=== PATIENT | female | born 1980 | race Hispanic/Latino ===

== ENCOUNTER 2020-09-21 01:01 | Emergency (ER) | payer SELFPAY ==
[~2020-09-21] VITALS: Ht 157.5 cm; Wt 83.9 kg
--- NOTE | 2020-09-21 01:04 | Emergency Department Note ---
History of Present Illnes History of Present Illness Chief Complaint: Chest Pain History of Present Illness This is a 40 year old female presents to the ED with abrupt onset of C P when she woke up this AM. Historian: Patient Arrival Mode: [place] Location: Substernal CP Radiation: Reports non-radiation Severity: moderate Onset quality: sudden Duration (how long): hour(s) Timing of current episode: constant Progression: unchanged Chronicity: new Context: Denies recent illness, Denies recent surgery, Denies recent immobilization, Denies recent travel, Denies trauma/injury, Denies new medications, Denies hx of DVT/PE, Denies non-compliance w/ medications, Denies other Relieving factors: none Exacerbating factors: none Associated symptoms: Reports shortness of breath Treatments prior to arrival: none Past Medical/Family History Physician Review I have reviewed the patient's past medical and family history. Any updates have been documented here. Past Medical History Recent Fever: No Clinical Suspicion of Infectio: No New/Unexplained Change in Ment: No Other Medical History: Anxiety Social History Smoking Cessation: Never Smoker Alcohol Use: None Any Illegal Drug Use: No Review of Systems Review of Systems Constitutional: Reports no symptoms EENTM: Reports no symptoms Cardiovascular: Reports chest pain Respiratory: Reports no symptoms Gastrointestinal: Reports no symptoms Genitourinary: Reports no symptoms Musculoskeletal: Reports no symptoms Integumentary: Reports no symptoms Neurological: Reports no symptoms Psychological: Reports no symptoms Endocrine: Reports no symptoms Hematological/Lymphatic: Reports no symptoms Physical Exam Related Data Allergies: Coded Allergies: acetaminophen (Verified Adverse Reaction, Intermediate, chest pain, 09/21/20) hydrocodone (Verified Adverse Reaction, Intermediate, chest pain, ) tramadol (Verified Adverse Reaction, Intermediate, chest pain, 09/21/20) Triage Vital Signs Vital Signs Date Time Temp Pulse Resp B/P (MAP) Pulse Ox O2 Delivery O2 Flow Rate FiO2 09/21/20 01:24 98.7 79 20 114/81 100 09/21/20 02:19 Room Air Vital signs reviewed: Yes Physical Exam CONSTITUTIONAL Constitutional: Present well-developed, Present well-nourished HENT HENT: Present normocephalic, Present atraumatic, Present oropharynx clear/moist , Present nose normal HENT L/R: Present left ext ear normal, Present right ext ear normal EYES Eyes: Reports PERRL, Reports conjunctivae normal NECK Neck: Present ROM normal PULMONARY Pulmonary: Present effort normal, Present breath sounds normal CARDIOVASCULAR Cardiovascular: Present regular rhythm, Present heart sounds normal, Present capillary refill normal, Present normal rate GASTROINTESTINAL Abdominal: Present soft, Present nontender, Present bowel sounds normal GENITOURINARY Genitourinary: Present exam deferred SKIN Skin: Present warm, Present dry MUSCULOSKELETAL Musculoskeletal: Present ROM normal NEUROLOGICAL Neurological: Present alert, Present oriented x 3, Present no gross motor or sensory deficits PSYCHOLOGICAL Psychological: Present mood/affect normal, Present judgement normal Results Laboratory Lab results reviewed: Yes Laboratory comments Laboratory Tests Test 09/21/20 01:25 White Blood Count 10.62 x10e3/uL (4.8-10.8) Red Blood Count 3.88 x10e6/uL (3.6-5.1) Hemoglobin 11.3 g/dL (12.0-16.0) Hematocrit 34.6 % (34.2-44.1) Mean Corpuscular Volume 89.2 fL (81-99) Mean Corpuscular Hemoglobin 29.1 pg (28-32) Mean Corpuscular Hemoglobin Concent 32.7 g/dL (31-35) Red Cell Distribution Width 13.2 % (11.7-14.4) Platelet Count 245 x10e3/uL (140-360) Neutrophils (%) (Auto) 58.1 % (38.7-80.0) Lymphocytes (%) (Auto) 33.2 % (18.0-39.1) Monocytes (%) (Auto) 6.5 % (4.4-11.3) Eosinophils (%) (Auto) 1.3 % (0.0-6.0) Basophils (%) (Auto) 0.5 % (0.0-1.0) Neutrophils # (Auto) 6.2 (2.1-6.9) Lymphocytes # (Auto) 3.5 (1.0-3.2) Monocytes # (Auto) 0.7 (0.2-0.8) Eosinophils # (Auto) 0.1 (0.0-0.4) Basophils # (Auto) 0.1 (0.0-0.1) Absolute Immature Granulocyte (auto 0.04 x10e3/uL (0-0.1) D-Dimer Quantitative (PE/DVT) 0.22 ug/mLFEU (0.00-0.45) Sodium Level 138 mmol/L (136-145) Potassium Level 3.6 mmol/L (3.5-5.1) Chloride Level 106 mmol/L (98-107) Carbon Dioxide Level 24 mmol/L (22-29) Anion Gap 11.6 mmol/L (8-16) Blood Urea Nitrogen 13 mg/dL (7-26) Creatinine 0.82 mg/dL (0.57-1.11) Estimat Glomerular Filtration Rate > 60 ML/MIN (60-) BUN/Creatinine Ratio 16 (6-25) Glucose Level 94 mg/dL (74-118) Calcium Level 8.9 mg/dL (8.4-10.2) Total Bilirubin 0.2 mg/dL (0.2-1.2) Aspartate Amino Transf (AST/SGOT) 11 IU/L (5-34) Alanine Aminotransferase (ALT/SGPT) 14 IU/L (0-55) Alkaline Phosphatase 52 IU/L (40-150) Creatine Kinase 75 IU/L (29-168) Creatine Kinase MB 1.30 ng/mL (0-5.0) Troponin I 0.002 ng/mL (0-0.300) B-Type Natriuretic Peptide 16.2 pg/mL (0-100) Total Protein 7.1 g/dL (6.5-8.1) Albumin 3.8 g/dL (3.5-5.0) Globulin 3.3 g/dL (2.3-3.5) Albumin/Globulin Ratio 1.2 (0.8-2.0) Imaging Imaging results reviewed: Yes Impressions [place] [id number] Patient Name: NEEMA CUEVAS MR #: [id number] : 1980 Age/Sex: 40/F Req #: [id number] Adm Physician: Ordered by: JEFF JOHN DO Report #: [id number] Location: ER Room/Bed: Procedure: [id number] DX/CHEST SINGLE (PORTABLE) Exam Date: Exam Time: REPORT STATUS: Signed EXAMINATION: CHEST SINGLE (PORTABLE) INDICATION: CP ^ERMD ORDER ^Y COMPARISON: None FINDINGS: TUBES and LINES: None. LUNGS: Normal lung volumes. Lungs are clear. No consolidations. PLEURA: No pleural effusion or pneumothorax. HEART AND MEDIASTINUM: The cardiomediastinal silhouette is unremarkable. BONES AND SOFT TISSUES: No acute osseous lesion. Soft tissues are unremarkable. UPPER ABDOMEN: No free air under the diaphragm. IMPRESSION: No acute thoracic radiographic abnormality. Signed by: Bonilla Celaya DO on 09/21/2020 2:14 AM Dictated By: BONILLA CELAYA DO 3 Transcribed By: GENI on 09/21/20213 COPY TO: JEFF JOHN DO~ Procedures 12 Lead ECG Interpretation ECG Interpretation #1: ECG: ECG 1 Roll Panner: Interpreted by ED physician Date: Sep 21, 2020 Time: 01:29 Prior ECG tracings: reviewed Rhythm: sinus rhythm Rate: normal BPM: 76 QRS axis: normal ST segments normal: Yes T waves normal: Yes Other findings: no other findings Clinical Impression: normal ECG ECG Interpretation #2: ECG: ECG 2 Roll Panner: Interpreted by ED physician Date: Sep 21, 2020 Time: 02:43 Rhythm: sinus rhythm Rate: normal BPM: 77 QRS axis: normal ST segments normal: Yes T waves normal: Yes Clinical Impression: normal ECG Assessment & Plan Medical Decision Making MDM Diff Dx : acs, asthma, PE, PTX Assessment & Plan Final Impression: (1) Chest pain Depart Disposition: HOME, SELF-CARE JEFF JOHN DO Sep 21, 2020 01:04
[2020-09-21] MEDS ORDERED: ASPIRIN 81 MG CHEW TAB PO ONE (01:15)
[2020-09-21 01:31] LABS: BASOPHILS # (AUTO) 0.1 (0.0-0.1); BASOPHILS % 0.5 % (0.0-1.0); EOSINOPHILS # (AUTO) 0.1 (0.0-0.4); EOSINOPHILS % 1.3 % (0.0-6.0); HEMATOCRIT 34.6 % (34.2-44.1); HEMOGLOBIN 11.3 g/dL (12.0-16.0); LYMPHOCYTES # (AUTO) 3.5 (1.0-3.2); LYMPHOCYTES % 33.2 % (18.0-39.1); MEAN CORPUSCULAR HEMOGLOBIN 29.1 pg (28-32); MEAN CORPUSCULAR HGB CONC 32.7 g/dL (31-35); MEAN CORPUSCULAR VOLUME 89.2 fL (81-99); MONOCYTES # (AUTO) 0.7 (0.2-0.8); MONOCYTES % 6.5 % (4.4-11.3); NEUTROPHILS # (AUTO) 6.2 (2.1-6.9); NEUTROPHILS % 58.1 % (38.7-80.0); PLATELET COUNT 245 x10e3/uL (140-360); RED BLOOD COUNT 3.88 x10e6/uL (3.6-5.1); RED CELL DISTRIBUTION WIDTH 13.2 % (11.7-14.4)
[2020-09-21 01:51] LABS: ALANINE AMINOTRANSFERASE 14 IU/L (0-55); ALBUMIN 3.8 g/dL (3.5-5.0); ALBUMIN/GLOBULIN RATIO 1.2 (0.8-2.0); ALKALINE PHOSPHATASE 52 IU/L (40-150); ANION GAP 11.6 mmol/L (8-16); BLOOD UREA NITROGEN 13 mg/dL (7-26); BUN/CREATININE RATIO 16 (6-25); CALCIUM 8.9 mg/dL (8.4-10.2); CARBON DIOXIDE 24 mmol/L (22-29); CHLORIDE 106 mmol/L (98-107); CREATINE KINASE 75 IU/L (29-168); CREATININE, SERUM 0.82 mg/dL (0.57-1.11); EST GLOMERULAR FILTRATION RATE > 60 ML/MIN (60-); GLUCOSE 94 mg/dL (74-118); POTASSIUM 3.6 mmol/L (3.5-5.1); SODIUM 138 mmol/L (136-145)
--- NOTE | 2020-09-21 02:17 | Diagnostic Imaging Report ---
EXAMINATION: CHEST SINGLE (PORTABLE) INDICATION: CP ^ERMD ORDER ^Y COMPARISON: None FINDINGS: TUBES and LINES: None. LUNGS: Normal lung volumes. Lungs are clear. No consolidations. PLEURA: No pleural effusion or pneumothorax. HEART AND MEDIASTINUM: The cardiomediastinal silhouette is unremarkable. BONES AND SOFT TISSUES: No acute osseous lesion. Soft tissues are unremarkable. UPPER ABDOMEN: No free air under the diaphragm. IMPRESSION: No acute thoracic radiographic abnormality. Signed by: Bonilla Celaya DO on 09/21/2020 2:14 AM
--- OUTSIDE RECORDS SUMMARY | 2020-09-21 02:36 | XMS REPORT | Continuity of Care Document ---
Author Author [facility] t Organization [facility] Address [address] [place] [address] Phone Unavailable Care Team Providers Care Human Resources Trainer Name Role Phone Pcp, No PCP Unavailable JEFF JOHN Unavailable Tim Pimentel MD TIM PIMENTEL Unavailable Payers Payer Name Policy Type Policy Number Effective Date Expiration Date S ource Problems This patient has no known problems. Allergies, Adverse Reactions, Alerts Allergy Name Allergy Type Status Severity Reaction(s) Onset Date Inacti ve Date Treating Clinician Comments Source tramadol DA Active 2020-07-05 00:00:00 [facility] hydrocodone bit DA Active [place] 2019-11-22 00:00:00 [facility] hydrocodone DA Active 2019-11-22 00:00:00 [facility] acetaminophen DA Active 2019-11-22 00:00:00 [facility] hydrocodone DA Active 2018-12-19 00:00:00 [facility] acetaminophen DA Active 2018-12-19 00:00:00 [facility] hydrocodone DA Active 2016-09-05 00:00:00 [facility] acetaminophen DA Active 2016-09-05 00:00:00 [facility] hydrocodone DA Active SV 2016-03-18 00:00:00 [facility] acetaminophen DA Active SV 2016-03-18 00:00:00 [facility] hydrocodone bit DA Active MO 2013-08-12 00:00:00 [facility] acetaminophen DA Active MO 2013-08-12 00:00:00 [facility] Social History Social Habit Start Date Stop Date Quantity Comments Source History SDOH Alcohol Std Drinks [facility] History SDOH Alcohol Binge [facility] Sex Assigned At [facility] Tobacco use and exposure 2019-11-14 00:00:00 2019-11-14 00:00:00 Neve r used [facility] Alcohol intake 2019-11-14 00:00:00 2019-11-14 00:00:00 Current non-drinker of alcohol (finding) [facility] History SDOH Alcohol Frequency 2019-11-14 00:00:00 2019-11-14 00:00:0 0 1 [facility] Smoking Status Start Date Stop Date Source Never smoker [facility] Medications Ordered Medication Name Filled Medication Name Start Date Stop Da te Current Medication? Ordering Clinician Indication Dosage Frequency Signature (SIG) Comments Components Source ALPRAZolam (XANAX) 0.25 MG tablet 2019-11-14 06:56:31 Yes .25mg Take 0.25 mg by mouth every night as needed for Anxiety. [facility] albuterol (PROVENTIL) 2.5 mg /3 mL (0.083 %) nebulizer solut ion 2019-11-14 06:56:31 Yes 2.5mg Take 2.5 m g by nebulization every 6 (six) hours as needed for Wheezing. [facility] Vital Signs Vital Name Observation Time Observation Value Comments Source Systolic blood pressure 2019-11-14 02:59:00 107 mm[Hg] [facility] Diastolic blood pressure 2019-11-14 02:59:00 75 mm[Hg] [facility] Heart rate 2019-11-14 02:59:00 79 /min [facility] Body temperature 2019-11-14 02:59:00 37.06 Lauren [facility] Respiratory rate 2019-11-14 02:59:00 20 /min [facility] Body height 2019-11-14 02:59:00 157.5 cm [facility] Body weight 2019-11-14 02:59:00 81.647 kg [facility] BMI 2019-11-14 02:59:00 32.92 kg/m2 [facility] Oxygen saturation in Arterial blood by Pulse oximetry 11-14 02:59:00 100 /min [facility] Procedures Procedure Date / Time Performed Performing Clinician [facility] e REPORT OF PROCEDURE - ENDOSCOPY SCAN 2019-11-24 13:10:27 Pro vider, Default Scanning [facility] SCREEN, URINE 2019-11-14 02:36:00 Jasmeet Pimentel Tim [facility] BASIC METABOLIC PANEL (7) 2019-11-14 02:31:00 Jasmeet Pimentel [facility] B-TYPE NATRIURETIC FACTOR (BNP) 2019-11-14 02:31:00 Jasmeet Pimentel [facility] TROPONIN I 2019-11-14 02:31:00 Jasmeet Pimentel Tim [facility] CBC W/PLT COUNT & AUTO DIFFERENTIAL 2019-11-14 02:31:00 Jasmeet Pimentel Tim [facility] ECG 12-LEAD 2019-11-14 02:10:25 [facility] Plan of Care Planned Activity Planned Date Details Comments Source Future Scheduled Test 2020-07-09 00:00:00 INFLUENZA VACCINE (#1) [code = INFLUENZA VACCINE (#1)] [facility] Future Scheduled Test 2002 00:00:00 Screening for adelso gnant neoplasm of cervix (procedure) [code = 137877632] [facility] Future Scheduled Test 2001 00:00:00 Lipid panel (proce dure) [code = 34074203] [facility] Test Description Test Time Test Comments Results Result Comments Source CHEST SINGLE (PORTABLE) 2020-09-21 02:13:00 [facility] 1980 Sex: F [place] [id number] Patient Name: NEEMA CEUVAS MR #: [id number] : 1980 Age/Sex: 40/F Req #: [id number] Adm Physician: Ordered by: JEFF JOHN DO Report #: [id number] Location: Room/Bed: Procedure: [id number] DX/CHEST SINGLE (PORTABLE) Exam Date: Exam Time: REPORT STATUS: Signed EXAMINATION: CHEST SINGLE (PORTABLE) INDICATION: CP ERMD ORDER Y COMPARISON: None FINDINGS: TUBES and LINES: None. LUNGS: Normal lung volumes. Lungs are clear. No consolidations. PLEURA: No pleural effusion or pneumothorax. HEART AND MEDIASTINUM: The cardiomediastinal silhouette is unremarkable. BONES AND SOFT TISSUES: No acute osseous lesion. Soft tissues are unremarkable. UPPER ABDOMEN: No free air under the diaphragm. IMPRESSION: No acute thoracic radiographic abnormality. Signed by: Bonilla Merritt DO on 09/21/2020 2:14 AM Dictated By: BONILLA MERRITT DO 3 Transcribed By: GENI on 09/21/20213 COPY TO: JEFF JOHN DO - MRI BRAIN W/O CONTRAST 2020-07-05 12:55:00 FA X: Karlee Freeman MD [phone] [place]: St: [facility] FAX: Ari Moore DO Name: MASONNEEMA NICHOLS [facility] : 1980 Age/S: 40/F [address] [facility] Unit #: [id number] Loc: [address] [place] [address] Phys: Ari Moore DO Acct: [id number] Dis Date: Status: ADM IN PHONE #: [phone] Exam Date: 07/05/2020 1253 FAX #: [phone] Reason: left face/arm numbness EXAMS: CPT CODE: [id number] MRI BRAIN W/O CONTRAST 13846 REASON FOR EXAM: left face/arm numbness Exam Order Date: 07/05/2020 1:16 PM Ordering: Ari Moore DO Attending:Micha Marrero MD Location:[facility] Procedure: - MRI BRAIN W/O CONTRAST Comparison: Head CT 07/04/2020 FINDINGS: Axial, sagittal, and coronal images of the head were obtained using T1, T2 weighted, inversion recovery, and gradient echo sequences. The diffusion images are within normal limits without abnormal signal intensity to suggest acute infarct. No IV gadolinium was given. The sagittal images show normal pituitary, cerebellum, and brain stem. No evidence of suprasellar mass. The axial T2, inversion recovery, and gradient echo images show no evidence of intra or extra axial mass. The ventricles, cisterns, and sulci are unremarkable. No evidence of hemorrhage. The cerebellar pontine angle area is within normal limits. There is no evidence of mass noted. The axial T1 images show no evidence of mass. No justine dence of old infarct. The coronal images show normal optic chiasm. IMPRESSION: Unremarkable brain MRI. at 7870 Reported and signed by: Anthony Rockwell M.D. CC: Karlee Martínez MD; Ari Moore DO Technologist: FLIP JEANRT - MRI Trnohrd Date/Time/By: 07/05/2020 (4411) : By: [email or web address] Orig Print D/T: S: 07/05/2020 (2357) PAGE 1 Signed Report URINALYSIS COMPLETE 2020-07-05 12:44:00 Test Item UA COLOR (test code = COLU) Light-Yellow YELLOW UA APPEARANCE (test code = APPU) Cloudy CLEAR A UA GLUCOSE DIPSTICK (test code = DGLUU) NEGATIVE mg/dL NEGATIVE UA BILIRUBIN DIPSTICK (test code = BILU) NEGATIVE mg/dL NEGATIVE UA KETONE DIPSTICK (test code = KETU) NEGATIVE mg/dL NEGATIVE UA SPECIFIC GRAVITY (test code = SGU) 1.018 1.001-1.035 UA BLOOD DIPSTICK (test code = LISSA) 0.03 mg/dL (Trace) mg/dL NEGATI VE A UA PH DIPSTICK (test code = JUDE) 7.0 5.0-8.0 UA PROTEIN DIPSTICK (test code = PROU) NEGATIVE mg/dL NEGATIVE UA UROBILINIOGEN DIPSTICK (test code = URO) Normal mg/dL NEGATIVE UA NITRITE DIPSTICK (test code = CLOVIS) NEGATIVE NEGATIVE UA LEUKOCYTE ESTERASE W REFLEX (test code = LEUUR) 500 Vera/u L (3+) Vera/uL NEGATIVE A UA WBC (test code = WBCU) 21-50 per HPF 0-5 A UA RBC (test code = RBCU) 6-10 #/HPF 0-5 A UA EPITHELIAL CELLS (test code = EPIU) MOD per HPF FEW UA BACTERIA (test code = BACU) MANY #/HPF NONE A UA HYALINE CAST (test code = HYALU) 0-2 #/LPF 0-5 UA MUCUS (test code = MUCU) FEW #/LPF FEW UA AMORPHOUS SEDIMENT (test code = AMORU) FEW #/LPF NONE Urine Source? VoidedDRUGS OF ABUSE SCREEN [id number] 12:44:00* Test Item Value Reference Range Interpretation Comments URN COCAINE (test code = COCAURN) NEGATIVE <300 ng/mL URN CANNABINOIDS (test code = CANNABURN) NEGATIVE <50 ng/mL URN AMPHETAMINE (test code = AMPHETURN) NEGATIVE <1000 ng/mL URN BARBITURATE (test code = BARBITURN) NEGATIVE <200 ng/mL URN BENZODIAZEPINE (test code = BENZOURN) POSITIVE <200 ng/mL A This test provides only a preliminary test result. A morespecific alternate chemical method must be used in order toobtain a confirmed analytical result. Gas chromatography/mass spectrometry (GC/MS) is thepreferred confirmatory method. Other chemical confirmationmethods are available. Clinical consideration and professional judgment should be applied to any drug of abusetest result, particularly when preliminary positive resultsare used.Unconfirmed screening results must not be used fornon-medical purposes (e.g., employment testing, legaltesting). URN OPIATES (test code = OPIATURN) NEGATIVE <300 ng/mL URN PHENCYCLIDINE (PCP) (test code = PHENCURN) NEGATIVE <25 ng/ mL URN METHADONE (test code = METHAURN) NEGATIVE <300 ng/mL Urine Source? VoidedURINALYSIS [id number] 12:44:00* Test Item Value Reference Range Interpretation Comments UA COLOR (test code = COLU) Light-Yellow YELLOW UA APPEARANCE (test code = APPU) Cloudy CLEAR A UA GLUCOSE DIPSTICK (test code = DGLUU) NEGATIVE mg/dL NEGATIVE UA BILIRUBIN DIPSTICK (test code = BILU) NEGATIVE mg/dL NEGATIVE UA KETONE DIPSTICK (test code = KETU) NEGATIVE mg/dL NEGATIVE UA SPECIFIC GRAVITY (test code = SGU) 1.018 1.001-1.035 UA BLOOD DIPSTICK (test code = LISSA) 0.03 mg/dL (Trace) mg/dL NEGATI VE A UA PH DIPSTICK (test code = JUDE) 7.0 5.0-8.0 UA PROTEIN DIPSTICK (test code = PROU) NEGATIVE mg/dL NEGATIVE UA UROBILINIOGEN DIPSTICK (test code = URO) Normal mg/dL NEGATIVE UA NITRITE DIPSTICK (test code = CLOVIS) NEGATIVE NEGATIVE UA LEUKOCYTE ESTERASE W REFLEX (test code = LEUUR) 500 Vera/u L (3+) Vera/uL NEGATIVE A UA WBC (test code = WBCU) 21-50 per HPF 0-5 A UA RBC (test code = RBCU) 6-10 #/HPF 0-5 A UA EPITHELIAL CELLS (test code = EPIU) MOD per HPF FEW UA BACTERIA (test code = BACU) MANY #/HPF NONE A UA HYALINE CAST (test code = HYALU) 0-2 #/LPF 0-5 UA MUCUS (test code = MUCU) FEW #/LPF FEW UA AMORPHOUS SEDIMENT (test code = AMORU) FEW #/LPF NONE Urine Source? VoidedDRUGS OF ABUSE SCREEN [id number] 12:44:00* Test Item Value Reference Range Interpretation Comments URN COCAINE (test code = COCAURN) NEGATIVE <300 ng/mL URN CANNABINOIDS (test code = CANNABURN) NEGATIVE <50 ng/mL URN AMPHETAMINE (test code = AMPHETURN) NEGATIVE <1000 ng/mL URN BARBITURATE (test code = BARBITURN) NEGATIVE <200 ng/mL URN BENZODIAZEPINE (test code = BENZOURN) POSITIVE <200 ng/mL A This test provides only a preliminary test result. A morespecific alternate chemical method must be used in order toobtain a confirmed analytical result. Gas chromatography/mass spectrometry (GC/MS) is thepreferred confirmatory method. Other chemical confirmationmethods are available. Clinical consideration and professional judgment should be applied to any drug of abusetest result, particularly when preliminary positive resultsare used.Unconfirmed screening results must not be used fornon-medical purposes (e.g., employment testing, legaltesting). URN OPIATES (test code = OPIATURN) NEGATIVE <300 ng/mL URN PHENCYCLIDINE (PCP) (test code = PHENCURN) NEGATIVE <25 ng/ mL URN METHADONE (test code = METHAURN) NEGATIVE <300 ng/mL Urine Source? VoidedURINALYSIS [id number] 12:31:00* Test Item Value Reference Range Interpretation Comments UA COLOR (test code = COLU) Light-Yellow YELLOW UA APPEARANCE (test code = APPU) Cloudy CLEAR A UA GLUCOSE DIPSTICK (test code = DGLUU) NEGATIVE mg/dL NEGATIVE UA BILIRUBIN DIPSTICK (test code = BILU) NEGATIVE mg/dL NEGATIVE UA KETONE DIPSTICK (test code = KETU) NEGATIVE mg/dL NEGATIVE UA SPECIFIC GRAVITY (test code = SGU) 1.018 1.001-1.035 UA BLOOD DIPSTICK (test code = LISSA) 0.03 mg/dL (Trace) mg/dL NEGATI VE A UA PH DIPSTICK (test code = JUDE) 7.0 5.0-8.0 UA PROTEIN DIPSTICK (test code = PROU) NEGATIVE mg/dL NEGATIVE UA UROBILINIOGEN DIPSTICK (test code = URO) Normal mg/dL NEGATIVE UA NITRITE DIPSTICK (test code = CLOVIS) NEGATIVE NEGATIVE UA LEUKOCYTE ESTERASE W REFLEX (test code = LEUUR) 500 Vera/u L (3+) Vera/uL NEGATIVE A UA WBC (test code = WBCU) per HPF 0-5 UA RBC (test code = RBCU) per HPF 0-5 UA EPITHELIAL CELLS (test code = EPIU) per HPF Few UA BACTERIA (test code = BACU) per HPF NONE Urine Source? VoidedDRUGS OF ABUSE SCREEN [id number] 12:31:00* Test Item Value Reference Range Interpretation Comments URN COCAINE (test code = COCAURN) <300 ng/mL URN CANNABINOIDS (test code = CANNABURN) <50 ng/mL URN AMPHETAMINE (test code = AMPHETURN) <1000 ng/mL URN BARBITURATE (test code = BARBITURN) <200 ng/mL URN BENZODIAZEPINE (test code = BENZOURN) <200 ng/mL URN OPIATES (test code = OPIATURN) <300 ng/mL URN PHENCYCLIDINE (PCP) (test code = PHENCURN) <25 ng/ mL URN METHADONE (test code = METHAURN) <300 ng/mL Urine Source? VoidedBASIC METABOLIC [id number] 07:02:00* Test Item Value Reference Range Interpretation Comments SODIUM (test code = NA) 143 mmol/L 136-145 N POTASSIUM (test code = K) 3.8 mmol/L 3.5-5.1 N CHLORIDE (test code = CL) 112.0 mmol/L 98-107 H CARBON DIOXIDE (test code = CO2) 25.0 mmol/L 21-32 N ANION GAP (test code = GAP) 9.8 10-20 L GLUCOSE (test code = GLU) 78 mg/dL 74-106 N BLOOD UREA NITROGEN (test code = BUN) 10 mg/dL 7-18 N GLOMERULAR FILTRATION RATE (test code = GFR) > 60 mL/min >=60 Estimated GFR by using Modified MDRD formula.Chronic kidney disease is defined as either kidney damageor GFR <60 mL/min/1.73 m2 for >3 months. CREATININE (test code = CREAT) 0.50 mg/dL 0.55-1.02 L Note change in reference range due to change in reagent. BUN/CREATININE RATIO (test code = BUN/CREA) 20.3 10-20 H CALCIUM (test code = CA) 8.5 mg/dL 8.5-10.1 N BASIC METABOLIC [id number] 06:54:00* Test Item Value Reference Range Interpretation Comments SODIUM (test code = NA) 143 mmol/L 136-145 N POTASSIUM (test code = K) 3.8 mmol/L 3.5-5.1 N CHLORIDE (test code = CL) 112.0 mmol/L 98-107 H CARBON DIOXIDE (test code = CO2) mmol/L 21-32 ANION GAP (test code = GAP) 10-20 GLUCOSE (test code = GLU) mg/dL 74-106 BLOOD UREA NITROGEN (test code = BUN) mg/dL 7-18 GLOMERULAR FILTRATION RATE (test code = GFR) mL/min >=60 CREATININE (test code = CREAT) mg/dL 0.55-1.02 BUN/CREATININE RATIO (test code = BUN/CREA) 10-20 CALCIUM (test code = CA) mg/dL 8.5-10.1 CBC W/AUTO [id number] 06:30:00* Test Item Value Reference Range Interpretation Comments WHITE BLOOD CELL (test code = WBC) 7.5 K/mm3 4.5-12.5 N RED BLOOD CELL (test code = RBC) 3.70 mill/mm3 3.7-5.2 N HEMOGLOBIN (test code = HGB) 11.1 gram/dL 11.5-15.5 L HEMATOCRIT (test code = HCT) 33.9 % 36.0-46.0 L MEAN CELL VOLUME (test code = MCV) 91.6 fL 80-98 N MEAN CELL HGB (test code = MCH) 30.0 picogram 27.0-33.0 N MEAN CELL HGB CONCETRATION (test code = MCHC) 32.7 gram/dL 33.0-36. 0 L RED CELL DISTRIBUTION WIDTH (test code = RDW) 13.8 % 11.6-16. 2 N RED CELL DISTRIBUTION WIDTH SD (test code = RDW-SD) 45.9 fL 37 .0-51.0 N PLATELET COUNT (test code = PLT) 220 K/mm3 150-450 N MEAN PLATELET VOLUME (test code = MPV) 10.4 fL 6.7-11.0 N NEUTROPHIL % (test code = NT%) 53.0 % 39.0-69.0 N IMMATURE GRANULOCYTE % (test code = IG%) 0.3 % 0.0-5.0 N LYMPHOCYTE % (test code = LY%) 37.7 % 25.0-55.0 N MONOCYTE % (test code = MO%) 6.5 % 0.0-10.0 N EOSINOPHIL % (test code = EO%) 2.0 % 0.0-5.0 N BASOPHIL % (test code = BA%) 0.5 % 0.0-1.0 N NUCLEATED RBC % (test code = NRBC%) 0.0 % 0-0 N NEUTROPHIL # (test code = NT#) 3.97 K/mm3 1.8-7.7 N IMMATURE GRANULOCYTE # (test code = IG#) 0.02 x10 3/uL 0-0.03 N LYMPHOCYTE # (test code = LY#) 2.82 K/mm3 1.0-5.0 N MONOCYTE # (test code = MO#) 0.49 K/mm3 0-0.8 N EOSINOPHIL # (test code = EO#) 0.15 K/mm3 0.0-0.5 N BASOPHIL # (test code = BA#) 0.04 K/mm3 0.0-0.2 N NUCLEATED RBC # (test code = NRBC#) 0.00 K/mm3 0.0-0.1 N MANUAL DIFF REQUIRED (test code = MDIFF) NO [id number] 16:03:00* Test Item Value Reference Range Interpretation Comments MAGNESIUM (test code = MAG) 2.4 mg/dL 1.8-2.4 N THYROID PROFILE [id number] 16:03:00* Test Item Value Reference Range Interpretation Comments T3 UPTAKE (test code = T3UP) 36.0 % 30.0-40.0 N T4 (THYROXINE) (test code = T4) 9.0 ug/dL 4.5-13.9 N T7 (FREE THYROXINE INDEX) (test code = T7) 3.24 FTI 1.3-5.1 N THYROID STIMULATING HORMONE (test code = TSH) 1.760 uIU/mL 0.36-3.7 4 N TSH REFERENCE RANGES: EUTHYROID: 0.35 - 4.3 mIU/mL HYPO : > 5.5 mIU/mL HYPER : < 0.35 mIU/mL [id number] 15:54:00* Test Item Value Reference Range Interpretation Comments MAGNESIUM (test code = MAG) 2.4 mg/dL 1.8-2.4 N THYROID PROFILE [id number] 15:54:00* Test Item Value Reference Range Interpretation Comments T3 UPTAKE (test code = T3UP) % 30.0-40.0 T4 (THYROXINE) (test code = T4) ug/dL 4.5-13.9 T7 (FREE THYROXINE INDEX) (test code = T7) FTI 1.3-5.1 THYROID STIMULATING HORMONE (test code = TSH) uIU/mL 0.36-3.7 4 LIPID PROFILE (CORONARY RISK)2020-07-04 15:34:00* Test Item Value Reference Range Interpretation Comments TRIGLYCERIDES (test code = TRIG) 136 mg/dL 20-150 N CHOLESTEROL (test code = CHOL) 145 mg/dL 0-200 N CHOLESTEROL/HDL RATIO (test code = CHOLHDL) 2.0 RATIO 0-4.9 N RISK ASSOCIATED WITH CHOL/HDL RATIOS: Risk Male Female1/2 AVERAGE 3.43 3.27AVERAGE 4.97 4.442X AVERAGE 9.55 7.053X AVERAGE 23.39 11.04 REFERENCE VALUE IS RELATED TO RISK LEVELS ASRECOMMENDED BY THE [facility]. HEART, LUNG, AND BLOOD INST. HDL CHOLESTEROL (test code = HDL) 51 mg/dL 40-60 N LIPOPROTEIN LDL (test code = LDL) 107 mg/dL 100-129 N RN PERSONNEL, CONTACT PHYSICIAN IMMEDIATELY IF THIS IS A STROKE, AMI OR CAROTID STENOSIS PATIENT WHEN THE LDL >100 (1ST OCCURENCE, THIS ADMISSION) Reference Interval: mg/dL mmol/L Optimal <100 <2.6Near/above optimal 100-129 2.6- 3.3Borderline High 130-159 3.4-4.1High 160-189 4.1-4.9Very High >=190 >=4.9========= This LDL result is a direct measurement.========= [id number] 15:33:00* Test Item Value Reference Range Interpretation Comments ALCOHOL (test code = ALC) < 3 mg/dL 0.0-3.0 N -- INTERPRETIVE DATA NOTE: POSITIVE SCREENING RESULTS SHOULD BE CONSIDERED PRESUMPTIVE.WHEN COLLECTED FOR MEDICAL PURPOSES ONLY. SPECIMEN WILL NOTBE COLLECTED BY CHAIN OF CUSTODY.IF A CONFIRMATION OF POSITIVE RESULTS IS DESIRED, ACONFIRMATION TEST MUST BE REQUESTED BY THE PHYSICIAN AT ANADDITIONAL CHARGE TO THE PATIENT. COVID 19 INHOUSE [id number] 12:40:00* Test Item Value Reference Range Interpretation Comments COVID 19 INHOUSE AG (test code = [id number]) NEGATIVE - XR CHEST 1 [id number] 12:36:00 FAX: Karlee Freeman MD [phone] [place]: St: REG FAX: Ari Moore DO Name: NEEMA FOX [facility] : 1980 Age/S: 40/F [address] [facility] Unit #: [id number] Loc: [place] [address] Phys: Ari Moore DO Acct: [id number] Dis Date: Status: REG ER PHONE #: [phone] Exam Date: 07/04/2020 1145 FAX #: [phone] Reason: COUGH EXAMS: CPT CODE: [id number] XR CHEST 1 V [id number] REASON FOR EXAM: COUGH Exam Order Date: 07/04/2020 10:56 AM Ordering M.D.: Ari Moore DO PROCEDURE: - XR CHEST 1 V COMPARISON: Chest x-ray November 22, 2019 FINDINGS: The lungs are clear. There is no pleural effusion or pneumothorax. Pulmonary vascularity is within normal limits. Cardiomediastinal silhouette is normal in size for technique. The mediastinal contours are within normal limits. Musculoskeletal structures are within normal limits. The visualized upper abdomen is within normal limits. IMPRESSION: No acute cardiopulmonary process. Location: [facility] at 1236 Reported and signed by: Ruddy Broussard MD CC: Karlee Martínez MD; Ari Moore DO Technologist: RT NEFTALI(R) Trnscrd Date/Time/By: 07/04/2020 (1236) : By: [email or web address] Orig Print D/T: S: 07/04/2020 (8562) PAGE 1 Signed Report BASIC METABOLIC [id number] 12:07:00* Test Item Value Reference Range Interpretation Comments SODIUM (test code = NA) 143 mmol/L 136-145 N POTASSIUM (test code = K) 3.4 mmol/L 3.5-5.1 L CHLORIDE (test code = CL) 114.0 mmol/L 98-107 H CARBON DIOXIDE (test code = CO2) 25.0 mmol/L 21-32 N ANION GAP (test code = GAP) 7.4 10-20 L GLUCOSE (test code = GLU) 85 mg/dL 74-106 N BLOOD UREA NITROGEN (test code = BUN) 6 mg/dL 7-18 L GLOMERULAR FILTRATION RATE (test code = GFR) > 60 mL/min >=60 Estimated GFR by using Modified MDRD formula.Chronic kidney disease is defined as either kidney damageor GFR <60 mL/min/1.73 m2 for >3 months. CREATININE (test code = CREAT) 0.50 mg/dL 0.55-1.02 L Note change in reference range due to change in reagent. BUN/CREATININE RATIO (test code = BUN/CREA) 11.0 10-20 N CALCIUM (test code = CA) 8.5 mg/dL 8.5-10.1 N HCG SERUM [id number] 12:07:00* Test Item Value Reference Range Interpretation Comments HCG SERUM QUAL (test code = HCGQL) NEGATIVE NEGATIVE This HCGQL test is NOT applicable for MALE patients.Check with nurse about probable order error.If Tumor Marker Test needed, nurse should order test "HCGTU"(Test #[id number]) [id number] 12:07:00* Test Item Value Reference Range Interpretation Comments TROPONIN-I (test code = TROPI) <0.015 ng/mL 0-0.045 N BASIC METABOLIC [id number] 11:53:00* Test Item Value Reference Range Interpretation Comments SODIUM (test code = NA) 143 mmol/L 136-145 N POTASSIUM (test code = K) 3.4 mmol/L 3.5-5.1 L CHLORIDE (test code = CL) 114.0 mmol/L 98-107 H CARBON DIOXIDE (test code = CO2) mmol/L 21-32 ANION GAP (test code = GAP) 10-20 GLUCOSE (test code = GLU) mg/dL 74-106 BLOOD UREA NITROGEN (test code = BUN) mg/dL 7-18 GLOMERULAR FILTRATION RATE (test code = GFR) mL/min >=60 CREATININE (test code = CREAT) mg/dL 0.55-1.02 BUN/CREATININE RATIO (test code = BUN/CREA) 10-20 CALCIUM (test code = CA) mg/dL 8.5-10.1 HCG SERUM [id number] 11:53:00* Test Item Value Reference Range Interpretation Comments HCG SERUM QUAL (test code = HCGQL) NEGATIVE [id number] 11:53:00* Test Item Value Reference Range Interpretation Comments TROPONIN-I (test code = TROPI) ng/mL 0-0.045 BASIC METABOLIC [id number] 11:53:00* Test Item Value Reference Range Interpretation Comments SODIUM (test code = NA) 143 mmol/L 136-145 N POTASSIUM (test code = K) 3.4 mmol/L 3.5-5.1 L CHLORIDE (test code = CL) 114.0 mmol/L 98-107 H CARBON DIOXIDE (test code = CO2) mmol/L 21-32 ANION GAP (test code = GAP) 10-20 GLUCOSE (test code = GLU) mg/dL 74-106 BLOOD UREA NITROGEN (test code = BUN) mg/dL 7-18 GLOMERULAR FILTRATION RATE (test code = GFR) mL/min >=60 CREATININE (test code = CREAT) mg/dL 0.55-1.02 BUN/CREATININE RATIO (test code = BUN/CREA) 10-20 CALCIUM (test code = CA) mg/dL 8.5-10.1 HCG SERUM [id number] 11:53:00* Test Item Value Reference Range Interpretation Comments HCG SERUM QUAL (test code = HCGQL) NEGATIVE NEGATIVE This HCGQL test is NOT applicable for MALE patients.Check with nurse about probable order error.If Tumor Marker Test needed, nurse should order test "HCGTU"(Test #[id number]) [id number] 11:53:00* Test Item Value Reference Range Interpretation Comments TROPONIN-I (test code = TROPI) ng/mL 0-0.045 PROTHROMBIN [id number] 11:47:00* Test Item Value Reference Range Interpretation Comments PROTHROMBIN TIME PATIENT (test code = PTP) 11.1 seconds 9.0-14.0 N INTERNATIONAL NORMAL RATIO (test code = INR) 1.0 0.8-1.2 N The therapeutic range for oral anticoagulant therapy formost indications is an international normalized ratio (INR)of between 2.0 and 3.0. The recommended therapeutic INRrange for various clinical situations is listed below: Clinical Situation INR range Pulmonary e mbolism treatment (2.0-3.0)Venous thrombosis treatmentVenous thrombosis prophylaxis (high risk surgery)Prevention of systemic embolism from: Acute myocardial infarction Valvular heart disease Atrial fibrillation Mechanical prosthetic heart valves (2.5-3.5) IS PATIENT ON ANTICOAGULANTS? NTHROMBOPLASTIN TIME [id number] 11:47:00* Test Item Value Reference Range Interpretation Comments THROMBOPLASTIN TIME PARTIAL (test code = PTT) 28.2 seconds 23.0-37. 0 N IS PATIENT ON ANTICOAGULANTS? NCBC W/AUTO [id number] 11:40:00* Test Item Value Reference Range Interpretation Comments WHITE BLOOD CELL (test code = WBC) 6.3 K/mm3 4.5-12.5 N RED BLOOD CELL (test code = RBC) 3.73 mill/mm3 3.7-5.2 N HEMOGLOBIN (test code = HGB) 11.0 gram/dL 11.5-15.5 L HEMATOCRIT (test code = HCT) 33.6 % 36.0-46.0 L MEAN CELL VOLUME (test code = MCV) 90.1 fL 80-98 N MEAN CELL HGB (test code = MCH) 29.5 picogram 27.0-33.0 N MEAN CELL HGB CONCETRATION (test code = MCHC) 32.7 gram/dL 33.0-36. 0 L RED CELL DISTRIBUTION WIDTH (test code = RDW) 13.8 % 11.6-16. 2 N RED CELL DISTRIBUTION WIDTH SD (test code = RDW-SD) 45.1 fL 37 .0-51.0 N PLATELET COUNT (test code = PLT) 216 K/mm3 150-450 N MEAN PLATELET VOLUME (test code = MPV) 10.2 fL 6.7-11.0 N NEUTROPHIL % (test code = NT%) 63.2 % 39.0-69.0 N IMMATURE GRANULOCYTE % (test code = IG%) 0.5 % 0.0-5.0 N LYMPHOCYTE % (test code = LY%) 29.1 % 25.0-55.0 N MONOCYTE % (test code = MO%) 5.1 % 0.0-10.0 N EOSINOPHIL % (test code = EO%) 1.6 % 0.0-5.0 N BASOPHIL % (test code = BA%) 0.5 % 0.0-1.0 N NUCLEATED RBC % (test code = NRBC%) 0.0 % 0-0 N NEUTROPHIL # (test code = NT#) 3.96 K/mm3 1.8-7.7 N IMMATURE GRANULOCYTE # (test code = IG#) 0.03 x10 3/uL 0-0.03 N LYMPHOCYTE # (test code = LY#) 1.82 K/mm3 1.0-5.0 N MONOCYTE # (test code = MO#) 0.32 K/mm3 0-0.8 N EOSINOPHIL # (test code = EO#) 0.10 K/mm3 0.0-0.5 N BASOPHIL # (test code = BA#) 0.03 K/mm3 0.0-0.2 N NUCLEATED RBC # (test code = NRBC#) 0.00 K/mm3 0.0-0.1 N CBC W/AUTO [id number] 11:37:00* Test Item Value Reference Range Interpretation Comments WHITE BLOOD CELL (test code = WBC) K/mm3 4.5-12.5 RED BLOOD CELL (test code = RBC) mill/mm3 3.7-5.2 HEMOGLOBIN (test code = HGB) gram/dL 11.5-15.5 HEMATOCRIT (test code = HCT) % 36.0-46.0 MEAN CELL VOLUME (test code = MCV) fL 80-98 MEAN CELL HGB (test code = MCH) picogram 27.0-33.0 MEAN CELL HGB CONCETRATION (test code = MCHC) gram/dL 33.0-36. 0 RED CELL DISTRIBUTION WIDTH (test code = RDW) % 11.6-16. 2 RED CELL DISTRIBUTION WIDTH SD (test code = RDW-SD) fL 37 .0-51.0 PLATELET COUNT (test code = PLT) 216 K/mm3 150-450 N MEAN PLATELET VOLUME (test code = MPV) fL 6.7-11.0 NEUTROPHIL % (test code = NT%) % 39.0-69.0 IMMATURE GRANULOCYTE % (test code = IG%) % 0.0-5.0 LYMPHOCYTE % (test code = LY%) % 25.0-55.0 MONOCYTE % (test code = MO%) % 0.0-10.0 EOSINOPHIL % (test code = EO%) % 0.0-5.0 BASOPHIL % (test code = BA%) % 0.0-1.0 NEUTROPHIL # (test code = NT#) K/mm3 1.8-7.7 LYMPHOCYTE # (test code = LY#) K/mm3 1.0-5.0 MONOCYTE # (test code = MO#) K/mm3 0-0.8 EOSINOPHIL # (test code = EO#) K/mm3 0.0-0.5 BASOPHIL # (test code = BA#) K/mm3 0.0-0.2 - CT HEAD/BRAIN W/O [id number] 11:18:00 Name: NEEMA FOX [facility] : 1980 Age/S: 40 / F [address] Unit #: [id number] Loc: [place] [address] Phys: Ari Moore DO Acct: [id number] Dis Date: Status: PRE ER PHONE #: [phone] Exam Date: 07/04/2020 1114 FAX #: [phone] Reason: left face/arm tingling EXAMS: CPT CODE: [id number] CT HEAD/BRAIN W/O CONT 46911 HISTORY: left face/arm tingling TECHNIQUE: Noncontrast 2.[address] of the head. Examination acquired within 24 hours of arrival. Automated exposure control for dose reduction. COMPARISON: None FINDINGS: No lacerations or contusions of the scalp or facial soft tissues. Calvarium and skull base are intact. No acute hemorrhage. No intracranial mass, mass effect, or midline shift. No effacement of the sulci or red- white matter interface. No cortical atrophy. No signs of white matter small-vessel disease. No hydrocephalus.. No extra-axial fluid collection. Visualized paranasal sinuses are clear. Mastoid air cells and middle ear cavities are clear. There is cerumen in the right external auditory canal. Orbital contents are unremarkable. IMPRESSION: Negative CT head. Location: [facility] at 1118 Reported and signed by: Ruddy Broussard MD CC: Karlee Martínez MD; Ari Moore DO Technologi st:Jn Dewey RT(R),(MR),(CT) CTDI: DLP: Trnscb Date/Time: (1118) t.SDR.RR31 Orig Print D/T: S: 07/04/2020 ( 1121) PAGE 1 Signed Report URINALYSIS [id number] 17:01:00* Test Item Value Reference Range Interpretation Comments UA COLOR (test code = COLU) DARK YELLOW YELLOW A UA APPEARANCE (test code = APPU) Cloudy CLEAR A UA GLUCOSE DIPSTICK (test code = DGLUU) norm mg/dL NEGATIVE UA BILIRUBIN DIPSTICK (test code = BILU) NEGATIVE mg/dL NEGATIVE UA KETONE DIPSTICK (test code = KETU) 5 (Trace) mg/dL NEGATIVE A UA SPECIFIC GRAVITY (test code = SGU) 1.010 1.001-1.035 UA BLOOD DIPSTICK (test code = LISSA) 150 (3+) Joel/uL NEGATIVE A UA PH DIPSTICK (test code = JUDE) 6.5 5.0-8.0 UA PROTEIN DIPSTICK (test code = PROU) 30 (1+) mg/dL Neg-15 A UA UROBILINIOGEN DIPSTICK (test code = URO) 4 mg/dL (2+) mg/dL 0.0 -0.2 A UA NITRITE DIPSTICK (test code = CLOVIS) NEGATIVE NEGATIVE UA LEUKOCYTE ESTERASE DIPSTICK (test code = LEUU) 500 Vera/uL (3+) u L NEGATIVE A UA WBC (test code = WBCU) >50 per HPF 0-5 A UA RBC (test code = RBCU) 5-10 per HPF 0-5 A UA EPITHELIAL CELLS (test code = EPIU) Few (2-5/hpf) per HPF Few UA BACTERIA (test code = BACU) MODERATE per HPF NONE A UA MUCUS (test code = MUCU) MODERATE per LPF NONE-FEW A URINALYSIS W/O [id number] 17:01:00* Test Item Value Reference Range Interpretation Comments UA MICROSCOPIC NEEDED? (test code = UAMICRO) YES URINALYSIS [id number] 16:57:00* Test Item Value Reference Range Interpretation Comments UA COLOR (test code = COLU) DARK YELLOW YELLOW A UA APPEARANCE (test code = APPU) Cloudy CLEAR A UA GLUCOSE DIPSTICK (test code = DGLUU) norm mg/dL NEGATIVE UA BILIRUBIN DIPSTICK (test code = BILU) NEGATIVE mg/dL NEGATIVE UA KETONE DIPSTICK (test code = KETU) 5 (Trace) mg/dL NEGATIVE A UA SPECIFIC GRAVITY (test code = SGU) 1.010 1.001-1.035 UA BLOOD DIPSTICK (test code = LISSA) 150 (3+) Joel/uL NEGATIVE A UA PH DIPSTICK (test code = JUDE) 6.5 5.0-8.0 UA PROTEIN DIPSTICK (test code = PROU) 30 (1+) mg/dL Neg-15 A UA UROBILINIOGEN DIPSTICK (test code = URO) 4 mg/dL (2+) mg/dL 0.0 -0.2 A UA NITRITE DIPSTICK (test code = CLOVIS) NEGATIVE NEGATIVE UA LEUKOCYTE ESTERASE DIPSTICK (test code = LEUU) 500 Vera/uL (3+) u L NEGATIVE A UA WBC (test code = WBCU) per HPF 0-5 UA RBC (test code = RBCU) per HPF 0-5 UA EPITHELIAL CELLS (test code = EPIU) per HPF Few UA BACTERIA (test code = BACU) per HPF NONE URINALYSIS W/O [id number] 16:57:00* Test Item Value Reference Range Interpretation Comments UA MICROSCOPIC NEEDED? (test code = UAMICRO) YES URINALYSIS [id number] 16:57:00* Test Item Value Reference Range Interpretation Comments UA COLOR (test code = COLU) DARK YELLOW YELLOW A UA APPEARANCE (test code = APPU) Cloudy CLEAR A UA GLUCOSE DIPSTICK (test code = DGLUU) norm mg/dL NEGATIVE UA BILIRUBIN DIPSTICK (test code = BILU) NEGATIVE mg/dL NEGATIVE UA KETONE DIPSTICK (test code = KETU) 5 (Trace) mg/dL NEGATIVE A UA SPECIFIC GRAVITY (test code = SGU) 1.010 1.001-1.035 UA BLOOD DIPSTICK (test code = LISSA) 150 (3+) Joel/uL NEGATIVE A UA PH DIPSTICK (test code = JUDE) 6.5 5.0-8.0 UA PROTEIN DIPSTICK (test code = PROU) 30 (1+) mg/dL Neg-15 A UA UROBILINIOGEN DIPSTICK (test code = URO) 4 mg/dL (2+) mg/dL 0.0 -0.2 A UA NITRITE DIPSTICK (test code = CLOVIS) NEGATIVE NEGATIVE UA LEUKOCYTE ESTERASE DIPSTICK (test code = LEUU) 500 Vera/uL (3+) u L NEGATIVE A UA WBC (test code = WBCU) per HPF 0-5 UA RBC (test code = RBCU) per HPF 0-5 UA EPITHELIAL CELLS (test code = EPIU) per HPF Few UA BACTERIA (test code = BACU) per HPF NONE URINALYSIS W/O [id number] 16:57:00* Test Item Value Reference Range Interpretation Comments UA MICROSCOPIC NEEDED? (test code = UAMICRO) YES BASIC METABOLIC [id number] 04:44:00* Test Item Value Reference Range Interpretation Comments SODIUM (test code = NA) 143 mmol/L 136-145 N POTASSIUM (test code = K) 3.1 mmol/L 3.5-5.1 L CHLORIDE (test code = CL) 105 mmol/L 101-109 N CARBON DIOXIDE (test code = CO2) 27.6 mmol/L 21-32 N ANION GAP (test code = GAP) 14 mmol/L 10-20 N GLUCOSE (test code = GLU) 83 mg/dL 74-106 N BLOOD UREA NITROGEN (test code = BUN) 8 mg/dL 3-21 N GLOMERULAR FILTRATION RATE (test code = GFR) > 60 mL/min >=60 Estimated GFR by using Modified MDRD formula.Chronic kidney disease is defined as either kidney damageor GFR <60 mL/min/1.73 m2 for >3 months. CREATININE (test code = CREAT) 0.64 mg/dL 0.55-1.3 N BUN/CREATININE RATIO (test code = BUN/CREA) 12.5 10-20 N CALCIUM (test code = CA) 8.8 mg/dL 8.4-10.2 N HCG SERUM [id number] 04:44:00* Test Item Value Reference Range Interpretation Comments HCG SERUM QUAL (test code = HCGQL) NEGATIVE BASIC METABOLIC [id number] 04:44:00* Test Item Value Reference Range Interpretation Comments SODIUM (test code = NA) 143 mmol/L 136-145 N POTASSIUM (test code = K) 3.1 mmol/L 3.5-5.1 L CHLORIDE (test code = CL) 105 mmol/L 101-109 N CARBON DIOXIDE (test code = CO2) 27.6 mmol/L 21-32 N ANION GAP (test code = GAP) 14 mmol/L 10-20 N GLUCOSE (test code = GLU) 83 mg/dL 74-106 N BLOOD UREA NITROGEN (test code = BUN) 8 mg/dL 3-21 N GLOMERULAR FILTRATION RATE (test code = GFR) > 60 mL/min >=60 Estimated GFR by using Modified MDRD formula.Chronic kidney disease is defined as either kidney damageor GFR <60 mL/min/1.73 m2 for >3 months. CREATININE (test code = CREAT) 0.64 mg/dL 0.55-1.3 N BUN/CREATININE RATIO (test code = BUN/CREA) 12.5 10-20 N CALCIUM (test code = CA) 8.8 mg/dL 8.4-10.2 N HCG SERUM [id number] 04:44:00* Test Item Value Reference Range Interpretation Comments HCG SERUM QUAL (test code = HCGQL) NEGATIVE NEGATIVE This HCGQL test is NOT applicable for MALE patients.Check with nurse about probable order error.If Tumor Marker Test needed, nurse should order test "HCGTU"(Test #[id number]) CBC W/AUTO [id number] 04:34:00* Test Item Value Reference Range Interpretation Comments WHITE BLOOD CELL (test code = WBC) 4.7 K/mm3 4.5-12.5 N RED BLOOD CELL (test code = RBC) 4.34 mill/mm3 3.7-5.2 N HEMOGLOBIN (test code = HGB) 12.7 gram/dL 11.5-15.5 N HEMATOCRIT (test code = HCT) 36.6 % 36.0-46.0 N MEAN CELL VOLUME (test code = MCV) 84.3 fL 80-98 N MEAN CELL HGB (test code = MCH) 29.3 picogram 27.0-33.0 N MEAN CELL HGB CONCETRATION (test code = MCHC) 34.7 gram/dL 33.0-36. 0 N RED CELL DISTRIBUTION WIDTH (test code = RDW) 12.9 % 11.6-16. 2 N RED CELL DISTRIBUTION WIDTH SD (test code = RDW-SD) 40.8 fL 37 .0-51.0 N PLATELET COUNT (test code = PLT) 178 K/mm3 150-450 N MEAN PLATELET VOLUME (test code = MPV) 10.6 fL 6.7-11.0 N NEUTROPHIL % (test code = NT%) 65.4 % 39.0-69.0 N LYMPHOCYTE % (test code = LY%) 26.1 % 25.0-55.0 N MONOCYTE % (test code = MO%) 7.7 % 0.0-10.0 N EOSINOPHIL % (test code = EO%) 0.6 % 0.0-5.0 N BASOPHIL % (test code = BA%) 0.2 % 0.0-1.0 N NEUTROPHIL # (test code = NT#) 3.05 K/mm3 1.8-7.7 N LYMPHOCYTE # (test code = LY#) 1.22 K/mm3 1.0-5.0 N MONOCYTE # (test code = MO#) 0.36 K/mm3 0-0.8 N EOSINOPHIL # (test code = EO#) 0.03 K/mm3 0.0-0.5 N BASOPHIL # (test code = BA#) 0.01 K/mm3 0.0-0.2 N MANUAL DIFF REQUIRED (test code = MDIFF) NO BASIC METABOLIC [id number] 01:13:00* Test Item Value Reference Range Interpretation Comments SODIUM (test code = NA) 140 mmol/L 136-145 N POTASSIUM (test code = K) 3.5 mmol/L 3.5-5.1 N CHLORIDE (test code = CL) 104 mmol/L 101-109 N CARBON DIOXIDE (test code = CO2) 27.5 mmol/L 21-32 N ANION GAP (test code = GAP) 12 mmol/L 10-20 N GLUCOSE (test code = GLU) 91 mg/dL 74-106 N BLOOD UREA NITROGEN (test code = BUN) 11 mg/dL 3-21 N GLOMERULAR FILTRATION RATE (test code = GFR) > 60 mL/min >=60 Estimated GFR by using Modified MDRD formula.Chronic kidney disease is defined as either kidney damageor GFR <60 mL/min/1.73 m2 for >3 months. CREATININE (test code = CREAT) 0.63 mg/dL 0.55-1.3 N BUN/CREATININE RATIO (test code = BUN/CREA) 17.5 10-20 N CALCIUM (test code = CA) 9.2 mg/dL 8.4-10.2 N [id number] 01:13:00* Test Item Value Reference Range Interpretation Comments TROPONIN-I (test code = TROPI) 0.02 ng/mL 0.00-0.056 N BASIC METABOLIC [id number] 01:08:00* Test Item Value Reference Range Interpretation Comments SODIUM (test code = NA) 140 mmol/L 136-145 N POTASSIUM (test code = K) 3.5 mmol/L 3.5-5.1 N CHLORIDE (test code = CL) 104 mmol/L 101-109 N CARBON DIOXIDE (test code = CO2) 27.5 mmol/L 21-32 N ANION GAP (test code = GAP) 12 mmol/L 10-20 N GLUCOSE (test code = GLU) 91 mg/dL 74-106 N BLOOD UREA NITROGEN (test code = BUN) 11 mg/dL 3-21 N GLOMERULAR FILTRATION RATE (test code = GFR) > 60 mL/min >=60 Estimated GFR by using Modified MDRD formula.Chronic kidney disease is defined as either kidney damageor GFR <60 mL/min/1.73 m2 for >3 months. CREATININE (test code = CREAT) 0.63 mg/dL 0.55-1.3 N BUN/CREATININE RATIO (test code = BUN/CREA) 17.5 10-20 N CALCIUM (test code = CA) 9.2 mg/dL 8.4-10.2 N [id number] 01:08:00* Test Item Value Reference Range Interpretation Comments TROPONIN-I (test code = TROPI) ng/mL 0-0.045 CBC W/O [id number] 00:56:00* Test Item Value Reference Range Interpretation Comments WHITE BLOOD CELL (test code = WBC) 9.0 K/mm3 4.5-12.5 N RED BLOOD CELL (test code = RBC) 4.08 mill/mm3 3.7-5.2 N HEMOGLOBIN (test code = HGB) 11.7 gram/dL 11.5-15.5 N HEMATOCRIT (test code = HCT) 35.5 % 36.0-46.0 L MEAN CELL VOLUME (test code = MCV) 87.0 fL 80-98 N MEAN CELL HGB (test code = MCH) 28.7 picogram 27.0-33.0 N MEAN CELL HGB CONCETRATION (test code = MCHC) 33.0 gram/dL 33.0-36. 0 N RED CELL DISTRIBUTION WIDTH (test code = RDW) 12.5 % 11.6-16. 2 N RED CELL DISTRIBUTION WIDTH SD (test code = RDW-SD) 40.6 fL 37 .0-51.0 N PLATELET COUNT (test code = PLT) 221 K/mm3 150-450 N MEAN PLATELET VOLUME (test code = MPV) 10.6 fL 6.7-11.0 N - XR CHEST 1 [id number] 00:43:00 Name: NEEMA FOX [facility] : 1980 Age/S:39 /F [address] [facility] Unit#:[id number] Loc: [place] [address] Phys: Camacho Gusman MD Dis Date: PHONE #: [phone] Status: REG ER FAX #: [phone] Exam Date: 11/22/2019 Reason: CHEST PAIN EXAMS: CPT CODE: [id number] XR CHEST 1 V 58220 EXAM: - XR CHEST 1 V HISTORY: Chest pain. COMPARISON: March 19, 2019. FINDINGS: Single AP view of the chest is provided. Heart size and vascularity are within normal limits. The lungs are clear of focal consolidation. No effusion, pneumothorax, or acute osseous abnormality. There is no significant change compared to previous exam. IMPRESSION: No radiographic evidence of acute cardiopulmonary process. at 0043 Reported and signed by: Wojciech Tamez MD CC: Karlee Martínez MD; Camacho Gusman MD Technologist: RAGHU FONSECA RT(R),RDMS,CT Trnscrpt Data: 11/22/2019 (0043) t.SDR.MKM4 Orig Print D/T: S: 11/22/2019 (0046) PAGE 1 Signed Report ECG 12 [id number] 06:51:00Interface, External Ris In - 11/14/2019 6:51 AM CSTVentricular Rate 97 BPMAtrial Rate 97 BPMP-R Interval 136 msQRS Duration 82 msQ-T Interval 358 msQTC Calculation(Bazepipe) 454 msP [place] 45 degreesR [place] 46 degreesT [place] 23 degreesNormal sinus rhythmNormal ECGNo previous ECGs availableConfirmed by MD TARYN, SADAF ([id number]) on 11/14/2019 6:50:57 [facility] ([facility]NP)2019-11-14 03:26:00* Test Item Value Reference Range Interpretation Comments BNP (test code = 05825-4) <10 0-100 Lab Interpretation (test code = 96577-7) [facility] (BNP)2019-11-14 03:26:00 * Test Item Value Reference Range Interpretation Comments B-TYPE NATRIURETIC PEPTIDE (BEAKER) (test code = 700) < pg/mL 0-100 Troponin [id number] 03:24:00* Test Item Value Reference Range Interpretation Comments Troponin I (test code = 40672-7) <0.01 0-0.03 LALIT (test code = LALIT) Troponin I (TnI) levels must be interpreted in the context of the presenting symptoms and the clinical findings. Elevated TnI levels indicate myocardial damage, but are not specific for ischemic heart disease. Elevated TnI levels are seen in patients with other cardiac conditions (including myocarditis and congestive heart failure), and slight TnI elevations occur in patients with other conditions, including sepsis, renal failure, acidosis, acute neurological disease, and persistent tachyarrhythmia. Lab Interpretation (test code = 12139-5) [facility] [id number] 03:24:00* Test Item Value Reference Range Interpretation Comments TROPONIN I (BEAKER) (test code = 397) < ng/mL 0.00-0.03 Troponin I (TnI) levels must be interpreted in the context of the presenting sym ptoms and the clinical findings. Elevated TnI levels indicate myocardial damage, but are not specific for ischemic heart disease. Elevated TnI levels are seen in patients with other cardiac conditions (including myocarditis and congestive h eart failure), and slight TnI elevations occur in patients with other conditions , including sepsis, renal failure, acidosis, acute neurological disease, and per sistent tachyarrhythmia.Basic Metabolic [id number] 03:17:00* Test Item Value Reference Range Interpretation Comments Sodium (test code = 2951-2) 139 meq/L 136-145 Potassium (test code = 2823-3) 3.5 meq/L 3.5-5.1 Chloride (test code = 2075-0) 107 meq/L 98-107 CO2 (test code = 8-9) 22 meq/L 22-29 BUN (test code = 3094-0) 13 mg/dL 7-21 Creatinine (test code = 2160-0) 0.75 mg/dL 0.57-1.25 Glucose (test code = 2345-7) 91 mg/dL 70-105 Calcium (test code = 59505-7) 9.8 mg/dL 8.4-10.2 EGFR (test code = 42992-0) 86 mL/min/1.73 sq m INSUFFICIENT CLINICAL DATA TO CALCULATE ESTIMATED GFR. [facility] [id number] 03:17:00* Test Item Value Reference Range Interpretation Comments SODIUM (BEAKER) (test code = 381) 139 meq/L 136-145 POTASSIUM (BEAKER) (test code = 379) 3.5 meq/L 3.5-5.1 CHLORIDE (BEAKER) (test code = 382) 107 meq/L 98-107 CO2 (BEAKER) (test code = 355) 22 meq/L 22-29 BLOOD UREA NITROGEN (BEAKER) (test code = 354) 13 mg/dL 7-21 CREATININE (BEAKER) (test code = 358) 0.75 mg/dL 0.57-1.25 GLUCOSE RANDOM (BEAKER) (test code = 652) 91 mg/dL 70-105 CALCIUM (BEAKER) (test code = 697) 9.8 mg/dL 8.4-10.2 EGFR (BEAKER) (test code = 1092) 86 mL/min/1.73 sq m INSUFFICIENT CLINICAL DATA TO CALCULATE ESTIMATED GFR. Screen, [id number] 03:13:00* Test Item Value Reference Range Interpretation Comments Preg Test, Ur (test code = 2112-1) Negative [facility], [id number] 03:13:00* Test Item Value Reference Range Interpretation Comments TEST URINE (BEAKER) (test code = 583) Negative CBC with platelet count + automated [id number] 02:59:00* Test Item Value Reference Range Interpretation Comments WBC (test code = 6690-2) 10.7 3.5- 10.5 K/L H RBC (test code = 789-8) 4.33 3.93- 5.22 M/L MCHC (test code = 786-4) 32.1 32.2- 35.5 GM/DL L Hematocrit (test code = 4544-3) 39.2 % 34.1-44.9 MCV (test code = 787-2) 90.5 fL 79.4-94.8 MCH (test code = 785-6) 29.1 pg 25.6-32.2 RDW (test code = 788-0) 13.3 % 11.7-14.4 Platelets (test code = 777-3) 246 150- 450 K/CU MM MPV (test code = 36667-7) 10.5 fL 9.4-12.3 nRBC (test code = 413) 0 0- 0 /100 WBC % Neutros (test code = 429) 55 % % Lymphs (test code = 430) 37 % % Monos (test code = 431) 6 % % Eos (test code = 432) 2 % % Baso (test code = 437) 0 % # Neutros (test code = 670) 5.85 1.56- 6.13 K/L # Lymphs (test code = 414) 3.98 1.18- 3.74 K/L H # Monos (test code = 415) 0.63 0.24- 0.36 K/L H # Eos (test code = 416) 0.16 0.04- 0.36 K/L # Baso (test code = 417) 0.04 0.01- 0.08 K/L Immature Granulocytes-Relative (test code = 2801) 0 % 0-1 Lab Interpretation (test code = 86219-5) Abnormal [facility] W/PLT COUNT & AUTO [id number] 02:59:00* Test Item Value Reference Range Interpretation Comments WHITE BLOOD CELL COUNT (BEAKER) (test code = 775) 10.7 K/ L 3.5- 10.5 H RED BLOOD CELL COUNT (BEAKER) (test code = 761) 4.33 M/ L 3.93-5 .22 HEMOGLOBIN (BEAKER) (test code = 410) 12.6 GM/DL 11.2-15.7 HEMATOCRIT (BEAKER) (test code = 411) 39.2 % 34.1-44.9 MEAN CORPUSCULAR VOLUME (BEAKER) (test code = 753) 90.5 fL 79. 4-94.8 MEAN CORPUSCULAR HEMOGLOBIN (BEAKER) (test code = 751) 29.1 pg 25.6-32.2 MEAN CORPUSCULAR HEMOGLOBIN CONC (BEAKER) (test code = 752) 32.1 GM/DL 32.2-35.5 L RED CELL DISTRIBUTION WIDTH (BEAKER) (test code = 412) 13.3 % 11.7-14.4 PLATELET COUNT (BEAKER) (test code = 756) 246 K/CU MM 150-450 MEAN PLATELET VOLUME (BEAKER) (test code = 754) 10.5 fL 9.4-12 .3 NUCLEATED RED BLOOD CELLS (BEAKER) (test code = 413) 0 /100 WBC 0 -0 NEUTROPHILS RELATIVE PERCENT (BEAKER) (test code = 429) 55 % LYMPHOCYTES RELATIVE PERCENT (BEAKER) (test code = 430) 37 % MONOCYTES RELATIVE PERCENT (BEAKER) (test code = 431) 6 % EOSINOPHILS RELATIVE PERCENT (BEAKER) (test code = 432) 2 % BASOPHILS RELATIVE PERCENT (BEAKER) (test code = 437) 0 % NEUTROPHILS ABSOLUTE COUNT (BEAKER) (test code = 670) 5.85 K/ L 1.56-6.13 LYMPHOCYTES ABSOLUTE COUNT (BEAKER) (test code = 414) 3.98 K/ L 1.18-3.74 H MONOCYTES ABSOLUTE COUNT (BEAKER) (test code = 415) 0.63 K/ L 0. 24-0.36 H EOSINOPHILS ABSOLUTE COUNT (BEAKER) (test code = 416) 0.16 K/ L 0.04-0.36 BASOPHILS ABSOLUTE COUNT (BEAKER) (test code = 417) 0.04 K/ L 0. 01-0.08 IMMATURE GRANULOCYTES-RELATIVE PERCENT (BEAKER) (test code = 2801) 0 % 0-1 COMPREHENSIVE METABOLIC [id number] 20:47:00* Test Item Value Reference Range Interpretation Comments SODIUM (test code = NA) 141 mmol/L 135-148 N POTASSIUM (test code = K) 3.1 mmol/L 3.5-5.1 L CHLORIDE (test code = CL) 104 mmol/L 101-109 N CARBON DIOXIDE (test code = CO2) 25.5 mmol/L 21-32 N ANION GAP (test code = GAP) 15 mmol/L 10-20 N GLUCOSE (test code = GLU) 106 mg/dL 74-106 N BLOOD UREA NITROGEN (test code = BUN) 11 mg/dL 3-21 N CREATININE (test code = CREAT) 0.86 mg/dL 0.55-1.3 N BUN/CREATININE RATIO (test code = BUN/CREA) 12.8 10-20 N TOTAL PROTEIN (test code = PROT) 8.1 g/dL 6.5-8.4 N ALBUMIN (test code = ALB) 4.0 g/dL 3.4-4.8 N GLOBULIN (test code = GLOB) 4.1 G/DL 1-10 N ALBUMIN/GLOBULIN RATIO (test code = A/G) 1.0 RATIO 0.75-1.50 N CALCIUM (test code = CA) 9.0 mg/dL 8.4-10.2 N BILIRUBIN TOTAL (test code = BILT) 0.60 mg/dL 0.0-1.0 N SGOT/AST (test code = AST) 11 U/L 6-32 N SGPT/ALT (test code = ALT) 15 U/L 12-78 N N ote: Change in REFERENCE RANGE due to new reagent method. ALKALINE PHOSPHATASE TOTAL (test code = ALKP) 63 U/L 38-126 N URINALYSIS [id number] 20:34:00* Test Item Value Reference Range Interpretation Comments UA COLOR (test code = COLU) YELLOW YELLOW UA APPEARANCE (test code = APPU) SLIGHT HAZY CLEAR A UA GLUCOSE DIPSTICK (test code = DGLUU) norm mg/dL NEGATIVE UA BILIRUBIN DIPSTICK (test code = BILU) NEGATIVE mg/dL NEGATIVE UA KETONE DIPSTICK (test code = KETU) 50 (2+) mg/dL NEGATIVE A UA SPECIFIC GRAVITY (test code = SGU) 1.015 1.001-1.035 UA BLOOD DIPSTICK (test code = LISSA) 150 (3+) Joel/uL NEGATIVE A UA PH DIPSTICK (test code = JUDE) 5.0 5.0-8.0 UA PROTEIN DIPSTICK (test code = PROU) 15 (TRACE) mg/dL Neg-15 A UA UROBILINIOGEN DIPSTICK (test code = URO) norm mg/dL 0.0-0.2 UA NITRITE DIPSTICK (test code = CLOVIS) POSITIVE NEGATIVE UA LEUKOCYTE ESTERASE DIPSTICK (test code = LEUU) 25 Vera/uL (Tra ce) uL NEGATIVE A UA WBC (test code = WBCU) 6-10 per HPF 0-5 A UA RBC (test code = RBCU) 3-5 per HPF 0-5 A UA EPITHELIAL CELLS (test code = EPIU) Few (2-5/hpf) per HPF Few UA BACTERIA (test code = BACU) MANY per HPF NONE A Urine Source? Clean CatchUR HCG [id number] 20:34:00* Test Item Value Reference Range Interpretation Comments UR HCG QUAL (test code = HCGQLU) NEGATIVE This HCGQL test is NOT applicable for MALE patients.Check with nurse about probable order error.If Tumor Marker Test needed, nurse should order test "HCGTU"(Test #[id number]) Urine Source? Clean CatchDRUGS OF ABUSE SCREEN [id number] 20:34:00* Test Item Value Reference Range Interpretation Comments URN COCAINE (test code = COCAURN) NEGATIVE NEGATIVE URN CANNABINOIDS (test code = CANNABURN) NEGATIVE NEGATIVE URN AMPHETAMINE (test code = AMPHETURN) NEGATIVE NEGATIVE URN BARBITURATE (test code = BARBITURN) NEGATIVE NEGATIVE URN BENZODIAZEPINE (test code = BENZOURN) POSITIVE NEGATIVE A URN OPIATES (test code = OPIATURN) NEGATIVE NEGATIVE URN PHENCYCLIDINE (PCP) (test code = PHENCURN) NEGATIVE NEGATIV E Urine Source? Clean CatchCOMPREHENSIVE METABOLIC [id number] 20:34:00* Test Item Value Reference Range Interpretation Comments SODIUM (test code = NA) 141 mmol/L 135-148 N POTASSIUM (test code = K) 3.1 mmol/L 3.5-5.1 L CHLORIDE (test code = CL) 104 mmol/L 101-109 N CARBON DIOXIDE (test code = CO2) 25.5 mmol/L 21-32 N ANION GAP (test code = GAP) 15 mmol/L 10-20 N GLUCOSE (test code = GLU) 106 mg/dL 74-106 N BLOOD UREA NITROGEN (test code = BUN) 11 mg/dL 3-21 N CREATININE (test code = CREAT) 0.86 mg/dL 0.55-1.3 N BUN/CREATININE RATIO (test code = BUN/CREA) 12.8 10-20 N TOTAL PROTEIN (test code = PROT) gram/dL 6.4-8.2 ALBUMIN (test code = ALB) g/dL 3.4-5.0 GLOBULIN (test code = GLOB) g/dL 2.7-4.2 ALBUMIN/GLOBULIN RATIO (test code = A/G) 0.75-1.50 CALCIUM (test code = CA) 9.0 mg/dL 8.4-10.2 N BILIRUBIN TOTAL (test code = BILT) mg/dL 0.2-1.2 SGOT/AST (test code = AST) IUnit/L 15-37 SGPT/ALT (test code = ALT) U/L 10-69 ALKALINE PHOSPHATASE TOTAL (test code = ALKP) IUnit/L 45-117 URINALYSIS [id number] 20:32:00* Test Item Value Reference Range Interpretation Comments UA COLOR (test code = COLU) YELLOW YELLOW UA APPEARANCE (test code = APPU) SLIGHT HAZY CLEAR A UA GLUCOSE DIPSTICK (test code = DGLUU) norm mg/dL NEGATIVE UA BILIRUBIN DIPSTICK (test code = BILU) NEGATIVE mg/dL NEGATIVE UA KETONE DIPSTICK (test code = KETU) 50 (2+) mg/dL NEGATIVE A UA SPECIFIC GRAVITY (test code = SGU) 1.015 1.001-1.035 UA BLOOD DIPSTICK (test code = LISSA) 150 (3+) Joel/uL NEGATIVE A UA PH DIPSTICK (test code = JUDE) 5.0 5.0-8.0 UA PROTEIN DIPSTICK (test code = PROU) 15 (TRACE) mg/dL Neg-15 A UA UROBILINIOGEN DIPSTICK (test code = URO) norm mg/dL 0.0-0.2 UA NITRITE DIPSTICK (test code = CLOVIS) POSITIVE NEGATIVE UA LEUKOCYTE ESTERASE DIPSTICK (test code = LEUU) 25 Vera/uL (Tra ce) uL NEGATIVE A UA WBC (test code = WBCU) 6-10 per HPF 0-5 A UA RBC (test code = RBCU) 3-5 per HPF 0-5 A UA EPITHELIAL CELLS (test code = EPIU) Few (2-5/hpf) per HPF Few UA BACTERIA (test code = BACU) MANY per HPF NONE A Urine Source? Clean CatchUR HCG [id number] 20:32:00* Test Item Value Reference Range Interpretation Comments UR HCG QUAL (test code = HCGQLU) NEGATIVE This HCGQL test is NOT applicable for MALE patients.Check with nurse about probable order error.If Tumor Marker Test needed, nurse should order test "HCGTU"(Test #550.64968) Urine Source? Clean CatchDRUGS OF ABUSE SCREEN [id number] 20:32:00* Test Item Value Reference Range Interpretation Comments URN COCAINE (test code = COCAURN) NEGATIVE URN CANNABINOIDS (test code = CANNABURN) NEGATIVE URN AMPHETAMINE (test code = AMPHETURN) NEGATIVE URN BARBITURATE (test code = BARBITURN) NEGATIVE URN BENZODIAZEPINE (test code = BENZOURN) NEGATIVE URN OPIATES (test code = OPIATURN) NEGATIVE URN PHENCYCLIDINE (PCP) (test code = PHENCURN) NEGATIV E Urine Source? Clean CatchCBC W/AUTO [id number] 20:22:00* Test Item Value Reference Range Interpretation Comments WHITE BLOOD CELL (test code = WBC) 11.5 K/mm3 4.5-12.5 N RED BLOOD CELL (test code = RBC) 4.06 mill/mm3 3.7-5.2 N HEMOGLOBIN (test code = HGB) 11.8 gram/dL 11.5-15.5 N HEMATOCRIT (test code = HCT) 36.3 % 36.0-46.0 N MEAN CELL VOLUME (test code = MCV) 89.4 fL 80-98 N MEAN CELL HGB (test code = MCH) 29.1 picogram 27.0-33.0 N MEAN CELL HGB CONCETRATION (test code = MCHC) 32.5 gram/dL 33.0-36. 0 L RED CELL DISTRIBUTION WIDTH (test code = RDW) 13.0 % 11.6-16. 2 N RED CELL DISTRIBUTION WIDTH SD (test code = RDW-SD) 43.1 fL 37 .0-51.0 N PLATELET COUNT (test code = PLT) 221 K/mm3 150-450 N MEAN PLATELET VOLUME (test code = MPV) 10.6 fL 6.7-11.0 N NEUTROPHIL % (test code = NT%) 86.0 % 39.0-69.0 H LYMPHOCYTE % (test code = LY%) 7.9 % 25.0-55.0 L MONOCYTE % (test code = MO%) 5.7 % 0.0-10.0 N EOSINOPHIL % (test code = EO%) 0.0 % 0.0-5.0 N BASOPHIL % (test code = BA%) 0.2 % 0.0-1.0 N NEUTROPHIL # (test code = NT#) 9.85 K/mm3 1.8-7.7 H LYMPHOCYTE # (test code = LY#) 0.91 K/mm3 1.0-5.0 L MONOCYTE # (test code = MO#) 0.65 K/mm3 0-0.8 N EOSINOPHIL # (test code = EO#) 0.00 K/mm3 0.0-0.5 N BASOPHIL # (test code = BA#) 0.02 K/mm3 0.0-0.2 N MANUAL DIFF REQUIRED (test code = MDIFF) NO URINALYSIS [id number] 03:31:00* Test Item Value Reference Range Interpretation Comments UA COLOR (test code = COLU) Light-Yellow YELLOW UA APPEARANCE (test code = APPU) Cloudy CLEAR A UA GLUCOSE DIPSTICK (test code = DGLUU) NEGATIVE mg/dL NEGATIVE UA BILIRUBIN DIPSTICK (test code = BILU) NEGATIVE mg/dL NEGATIVE UA KETONE DIPSTICK (test code = KETU) NEGATIVE mg/dL NEGATIVE UA SPECIFIC GRAVITY (test code = SGU) 1.026 1.001-1.035 UA BLOOD DIPSTICK (test code = LISSA) Negative mg/dL NEGATIVE UA PH DIPSTICK (test code = JUDE) 6.5 5.0-8.0 UA PROTEIN DIPSTICK (test code = PROU) 10 (Trace) mg/dL NEGATIVE A UA UROBILINIOGEN DIPSTICK (test code = URO) Normal mg/dL NEGATIVE UA NITRITE DIPSTICK (test code = CLOVIS) POSITIVE NEGATIVE A UA LEUKOCYTE ESTERASE W REFLEX (test code = LEUUR) 250 Vera/u L (2+) Vera/uL NEGATIVE A UA WBC (test code = WBCU) 101-150 per HPF 0-5 A UA RBC (test code = RBCU) 0-2 #/HPF 0-5 UA EPITHELIAL CELLS (test code = EPIU) MOD per HPF FEW UA BACTERIA (test code = BACU) MANY #/HPF NONE A UA MUCUS (test code = MUCU) FEW #/LPF FEW Urine Source? Clean CatchURINALYSIS [id number] 03:29:00* Test Item Value Reference Range Interpretation Comments UA COLOR (test code = COLU) Light-Yellow YELLOW UA APPEARANCE (test code = APPU) Cloudy CLEAR A UA GLUCOSE DIPSTICK (test code = DGLUU) NEGATIVE mg/dL NEGATIVE UA BILIRUBIN DIPSTICK (test code = BILU) NEGATIVE mg/dL NEGATIVE UA KETONE DIPSTICK (test code = KETU) NEGATIVE mg/dL NEGATIVE UA SPECIFIC GRAVITY (test code = SGU) 1.026 1.001-1.035 UA BLOOD DIPSTICK (test code = LISSA) Negative mg/dL NEGATIVE UA PH DIPSTICK (test code = JUDE) 6.5 5.0-8.0 UA PROTEIN DIPSTICK (test code = PROU) 10 (Trace) mg/dL NEGATIVE A UA UROBILINIOGEN DIPSTICK (test code = URO) Normal mg/dL NEGATIVE UA NITRITE DIPSTICK (test code = CLOVIS) POSITIVE NEGATIVE A UA LEUKOCYTE ESTERASE W REFLEX (test code = LEUUR) 250 Vera/u L (2+) Vera/uL NEGATIVE A UA WBC (test code = WBCU) per HPF 0-5 UA RBC (test code = RBCU) per HPF 0-5 UA EPITHELIAL CELLS (test code = EPIU) per HPF Few UA BACTERIA (test code = BACU) per HPF NONE Urine Source? Clean CatchURINALYSIS [id number] 01:15:00* Test Item Value Reference Range Interpretation Comments UA COLOR (test code = COLU) YELLOW YELLOW UA APPEARANCE (test code = APPU) CLEAR CLEAR UA GLUCOSE DIPSTICK (test code = DGLUU) norm mg/dL NEGATIVE UA BILIRUBIN DIPSTICK (test code = BILU) NEGATIVE mg/dL NEGATIVE UA KETONE DIPSTICK (test code = KETU) neg mg/dL NEGATIVE UA SPECIFIC GRAVITY (test code = SGU) 1.010 1.001-1.035 UA BLOOD DIPSTICK (test code = LISSA) 10 (Trace) Joel/uL NEGATIVE A UA PH DIPSTICK (test code = JUDE) 7.0 5.0-8.0 UA PROTEIN DIPSTICK (test code = PROU) neg mg/dL Neg-15 UA UROBILINIOGEN DIPSTICK (test code = URO) norm mg/dL 0.0-0.2 UA NITRITE DIPSTICK (test code = CLOVIS) NEGATIVE NEGATIVE UA LEUKOCYTE ESTERASE DIPSTICK (test code = LEUU) 500 Vera/uL (3+) u L NEGATIVE A UA WBC (test code = WBCU) 5-10 per HPF 0-5 A UA RBC (test code = RBCU) 0-2 per HPF 0-5 UA EPITHELIAL CELLS (test code = EPIU) Few (2-5/hpf) per HPF Few UA BACTERIA (test code = BACU) MODERATE per HPF NONE A Urine Source? Clean CatchDRUGS OF ABUSE SCREEN [id number] 01:15:00* Test Item Value Reference Range Interpretation Comments URN COCAINE (test code = COCAURN) NEGATIVE NEGATIVE URN CANNABINOIDS (test code = CANNABURN) NEGATIVE NEGATIVE URN AMPHETAMINE (test code = AMPHETURN) NEGATIVE NEGATIVE URN BARBITURATE (test code = BARBITURN) NEGATIVE NEGATIVE URN BENZODIAZEPINE (test code = BENZOURN) POSITIVE NEGATIVE A URN OPIATES (test code = OPIATURN) NEGATIVE NEGATIVE URN PHENCYCLIDINE (PCP) (test code = PHENCURN) NEGATIVE NEGATIV E Urine Source? Clean CatchBASIC METABOLIC [id number] 01:14:00* Test Item Value Reference Range Interpretation Comments SODIUM (test code = NA) 141 mmol/L 136-145 N POTASSIUM (test code = K) 3.6 mmol/L 3.5-5.1 N CHLORIDE (test code = CL) 104 mmol/L 101-109 N CARBON DIOXIDE (test code = CO2) 29.3 mmol/L 21-32 N ANION GAP (test code = GAP) 11 mmol/L 10-20 N GLUCOSE (test code = GLU) 92 mg/dL 74-106 N BLOOD UREA NITROGEN (test code = BUN) 14 mg/dL 3-21 N GLOMERULAR FILTRATION RATE (test code = GFR) > 60 mL/min >=60 Estimated GFR by using Modified MDRD formula.Chronic kidney disease is defined as either kidney damageor GFR <60 mL/min/1.73 m2 for >3 months. CREATININE (test code = CREAT) 0.99 mg/dL 0.55-1.3 N BUN/CREATININE RATIO (test code = BUN/CREA) 14.1 10-20 N CALCIUM (test code = CA) 9.0 mg/dL 8.4-10.2 N HEPATIC FUNCTION [id number] 01:14:00* Test Item Value Reference Range Interpretation Comments TOTAL PROTEIN (test code = PROT) 7.6 g/dL 6.5-8.4 N ALBUMIN (test code = ALB) 4.0 g/dL 3.4-4.8 N GLOBULIN (test code = GLOB) 3.6 G/DL 1-10 N ALBUMIN/GLOBULIN RATIO (test code = A/G) 1.11 RATIO 0.75-1.50 N BILIRUBIN TOTAL (test code = BILT) 0.20 mg/dL 0.0-1.0 N BILIRUBIN DIRECT (test code = BILD) 0.10 mg/dL 0.0-0.30 N SGOT/AST (test code = AST) 15 U/L 6-32 N SGPT/ALT (test code = ALT) 16 U/L 12-78 N N ote: Change in REFERENCE RANGE due to new reagent method. ALKALINE PHOSPHATASE TOTAL (test code = ALKP) 57 U/L 38-126 N HCG SERUM [id number] 01:14:00* Test Item Value Reference Range Interpretation Comments HCG SERUM QUAL (test code = HCGQL) NEGATIVE NEGATIVE This HCGQL test is NOT applicable for MALE patients.Check with nurse about probable order error.If Tumor Marker Test needed, nurse should order test "HCGTU"(Test #550.49400) THYROID STIMULATING [id number] 01:14:00* Test Item Value Reference Range Interpretation Comments THYROID STIMULATING HORMONE (test code = TSH) 5.04 uIU/mL 0.36-3.7 4 H TSH REFERENCE RANGES: EUTHYROID: 0.4 - 4.3 HYPO : >7.6 HYPER : <0.1 [id number] 01:14:00* Test Item Value Reference Range Interpretation Comments ACETAMINOPHEN (test code = ACET) < 10 mcg/mL 0-30 N A RANGE OF 10-30 UG/ML IS A THERAPEUTIC RANGE. TOXIC CONCENTRATIONS: >150 UG/ML AFTER 4 HOURS OF INGESTION > 50 UG/ML AFTER 12 HOURS OF INGESTION [id number] 01:14:00* Test Item Value Reference Range Interpretation Comments SALICYLATE (test code = THEA) 0.9 mg/dL 2.8-20.0 L [id number] 01:14:00* Test Item Value Reference Range Interpretation Comments ALCOHOL (test code = ALC) < 3 mg/dL 0.0-3.0 N -- INTERPRETIVE DATA NOTE: POSITIVE SCREENING RESULTS SHOULD BE CONSIDERED PRESUMPTIVE.WHEN COLLECTED FOR MEDICAL PURPOSES ONLY. SPECIMEN WILL NOTBE COLLECTED BY CHAIN OF CUSTODY.IF A CONFIRMATION OF POSITIVE RESULTS IS DESIRED, ACONFIRMATION TEST MUST BE REQUESTED BY THE PHYSICIAN AT ANADDITIONAL CHARGE TO THE PATIENT. BASIC METABOLIC [id number] 01:06:00* Test Item Value Reference Range Interpretation Comments SODIUM (test code = NA) 141 mmol/L 136-145 N POTASSIUM (test code = K) 3.6 mmol/L 3.5-5.1 N CHLORIDE (test code = CL) 104 mmol/L 101-109 N CARBON DIOXIDE (test code = CO2) 29.3 mmol/L 21-32 N ANION GAP (test code = GAP) 11 mmol/L 10-20 N GLUCOSE (test code = GLU) 92 mg/dL 74-106 N BLOOD UREA NITROGEN (test code = BUN) 14 mg/dL 3-21 N GLOMERULAR FILTRATION RATE (test code = GFR) > 60 mL/min >=60 Estimated GFR by using Modified MDRD formula.Chronic kidney disease is defined as either kidney damageor GFR <60 mL/min/1.73 m2 for >3 months. CREATININE (test code = CREAT) 0.99 mg/dL 0.55-1.3 N BUN/CREATININE RATIO (test code = BUN/CREA) 14.1 10-20 N CALCIUM (test code = CA) 9.0 mg/dL 8.4-10.2 N HEPATIC FUNCTION [id number] 01:06:00* Test Item Value Reference Range Interpretation Comments TOTAL PROTEIN (test code = PROT) gram/dL 6.4-8.2 ALBUMIN (test code = ALB) g/dL 3.4-5.0 GLOBULIN (test code = GLOB) g/dL 2.7-4.2 ALBUMIN/GLOBULIN RATIO (test code = A/G) 0.75-1.50 BILIRUBIN TOTAL (test code = BILT) mg/dL 0.2-1.2 BILIRUBIN DIRECT (test code = BILD) mg/dL 0.0-0.20 SGOT/AST (test code = AST) IUnit/L 15-37 SGPT/ALT (test code = ALT) U/L 10-69 ALKALINE PHOSPHATASE TOTAL (test code = ALKP) IUnit/L 45-117 HCG SERUM [id number] 01:06:00* Test Item Value Reference Range Interpretation Comments HCG SERUM QUAL (test code = HCGQL) NEGATIVE NEGATIVE This HCGQL test is NOT applicable for MALE patients.Check with nurse about probable order error.If Tumor Marker Test needed, nurse should order test "HCGTU"(Test #550.69851) THYROID STIMULATING [id number] 01:06:00* Test Item Value Reference Range Interpretation Comments THYROID STIMULATING HORMONE (test code = TSH) uIU/mL 0.36-3.7 4 [id number] 01:06:00* Test Item Value Reference Range Interpretation Comments ACETAMINOPHEN (test code = ACET) mcg/mL 10-30 [id number] 01:06:00* Test Item Value Reference Range Interpretation Comments SALICYLATE (test code = THEA) mg/dL 2.8-20.0 [id number] 01:06:00* Test Item Value Reference Range Interpretation Comments ALCOHOL (test code = ALC) mg/dL 0.0-3.0 BASIC METABOLIC [id number] 00:59:00* Test Item Value Reference Range Interpretation Comments SODIUM (test code = NA) mmol/L 135-148 POTASSIUM (test code = K) mmol/L 3.5-5.1 CHLORIDE (test code = CL) mmol/L 101-109 CARBON DIOXIDE (test code = CO2) mmol/L 21-32 ANION GAP (test code = GAP) mmol/L 10-20 GLUCOSE (test code = GLU) mg/dL 74-106 BLOOD UREA NITROGEN (test code = BUN) mg/dL 3-21 GLOMERULAR FILTRATION RATE (test code = GFR) mL/min >=60 CREATININE (test code = CREAT) mg/dL 0.55-1.3 BUN/CREATININE RATIO (test code = BUN/CREA) 10-20 CALCIUM (test code = CA) mg/dL 8.4-10.2 HEPATIC FUNCTION [id number] 00:59:00* Test Item Value Reference Range Interpretation Comments TOTAL PROTEIN (test code = PROT) gram/dL 6.4-8.2 ALBUMIN (test code = ALB) g/dL 3.4-5.0 GLOBULIN (test code = GLOB) g/dL 2.7-4.2 ALBUMIN/GLOBULIN RATIO (test code = A/G) 0.75-1.50 BILIRUBIN TOTAL (test code = BILT) mg/dL 0.2-1.2 BILIRUBIN DIRECT (test code = BILD) mg/dL 0.0-0.20 SGOT/AST (test code = AST) IUnit/L 15-37 SGPT/ALT (test code = ALT) U/L 10-69 ALKALINE PHOSPHATASE TOTAL (test code = ALKP) IUnit/L 45-117 HCG SERUM [id number] 00:59:00* Test Item Value Reference Range Interpretation Comments HCG SERUM QUAL (test code = HCGQL) NEGATIVE NEGATIVE This HCGQL test is NOT applicable for MALE patients.Check with nurse about probable order error.If Tumor Marker Test needed, nurse should order test "HCGTU"(Test #550.47580) THYROID STIMULATING [id number] 00:59:00* Test Item Value Reference Range Interpretation Comments THYROID STIMULATING HORMONE (test code = TSH) uIU/mL 0.36-3.7 4 [id number] 00:59:00* Test Item Value Reference Range Interpretation Comments ACETAMINOPHEN (test code = ACET) mcg/mL 10-30 [id number] 00:59:00* Test Item Value Reference Range Interpretation Comments SALICYLATE (test code = THEA) mg/dL 2.8-20.0 [id number] 00:59:00* Test Item Value Reference Range Interpretation Comments ALCOHOL (test code = ALC) mg/dL 0.0-3.0 URINALYSIS [id number] 00:51:00* Test Item Value Reference Range Interpretation Comments UA COLOR (test code = COLU) YELLOW YELLOW UA APPEARANCE (test code = APPU) CLEAR CLEAR UA GLUCOSE DIPSTICK (test code = DGLUU) norm mg/dL NEGATIVE UA BILIRUBIN DIPSTICK (test code = BILU) NEGATIVE mg/dL NEGATIVE UA KETONE DIPSTICK (test code = KETU) neg mg/dL NEGATIVE UA SPECIFIC GRAVITY (test code = SGU) 1.010 1.001-1.035 UA BLOOD DIPSTICK (test code = LISSA) 10 (Trace) Joel/uL NEGATIVE A UA PH DIPSTICK (test code = JUDE) 7.0 5.0-8.0 UA PROTEIN DIPSTICK (test code = PROU) neg mg/dL Neg-15 UA UROBILINIOGEN DIPSTICK (test code = URO) norm mg/dL 0.0-0.2 UA NITRITE DIPSTICK (test code = CLOVIS) NEGATIVE NEGATIVE UA LEUKOCYTE ESTERASE DIPSTICK (test code = LEUU) 500 Vera/uL (3+) u L NEGATIVE A UA WBC (test code = WBCU) 5-10 per HPF 0-5 A UA RBC (test code = RBCU) 0-2 per HPF 0-5 UA EPITHELIAL CELLS (test code = EPIU) Few (2-5/hpf) per HPF Few UA BACTERIA (test code = BACU) MODERATE per HPF NONE A Urine Source? Clean CatchDRUGS OF ABUSE SCREEN [id number] 00:51:00* Test Item Value Reference Range Interpretation Comments URN COCAINE (test code = COCAURN) NEGATIVE URN CANNABINOIDS (test code = CANNABURN) NEGATIVE URN AMPHETAMINE (test code = AMPHETURN) NEGATIVE URN BARBITURATE (test code = BARBITURN) NEGATIVE URN BENZODIAZEPINE (test code = BENZOURN) NEGATIVE URN OPIATES (test code = OPIATURN) NEGATIVE URN PHENCYCLIDINE (PCP) (test code = PHENCURN) NEGATIV E Urine Source? Clean CatchCBC W/O [id number] 00:43:00* Test Item Value Reference Range Interpretation Comments WHITE BLOOD CELL (test code = WBC) 10.1 K/mm3 4.5-12.5 N RED BLOOD CELL (test code = RBC) 3.95 mill/mm3 3.7-5.2 N HEMOGLOBIN (test code = HGB) 11.6 gram/dL 11.5-15.5 N HEMATOCRIT (test code = HCT) 34.7 % 36.0-46.0 L MEAN CELL VOLUME (test code = MCV) 87.8 fL 80-98 N MEAN CELL HGB (test code = MCH) 29.4 picogram 27.0-33.0 N MEAN CELL HGB CONCETRATION (test code = MCHC) 33.4 gram/dL 33.0-36. 0 N RED CELL DISTRIBUTION WIDTH (test code = RDW) 13.1 % 11.6-16. 2 N RED CELL DISTRIBUTION WIDTH SD (test code = RDW-SD) 43.0 fL 37 .0-51.0 N PLATELET COUNT (test code = PLT) 216 K/mm3 150-450 N MEAN PLATELET VOLUME (test code = MPV) 11.1 fL 6.7-11.0 H URINALYSIS [id number] 00:43:00* Test Item Value Reference Range Interpretation Comments UA COLOR (test code = COLU) YELLOW YELLOW UA APPEARANCE (test code = APPU) CLEAR CLEAR UA GLUCOSE DIPSTICK (test code = DGLUU) norm mg/dL NEGATIVE UA BILIRUBIN DIPSTICK (test code = BILU) NEGATIVE mg/dL NEGATIVE UA KETONE DIPSTICK (test code = KETU) neg mg/dL NEGATIVE UA SPECIFIC GRAVITY (test code = SGU) 1.010 1.001-1.035 UA BLOOD DIPSTICK (test code = ILSSA) 10 (Trace) Joel/uL NEGATIVE A UA PH DIPSTICK (test code = JUDE) 7.0 5.0-8.0 UA PROTEIN DIPSTICK (test code = PROU) neg mg/dL Neg-15 UA UROBILINIOGEN DIPSTICK (test code = URO) norm mg/dL 0.0-0.2 UA NITRITE DIPSTICK (test code = CLOVIS) NEGATIVE NEGATIVE UA LEUKOCYTE ESTERASE DIPSTICK (test code = LEUU) 500 Vera/uL (3+) u L NEGATIVE A UA WBC (test code = WBCU) per HPF 0-5 UA RBC (test code = RBCU) per HPF 0-5 UA EPITHELIAL CELLS (test code = EPIU) per HPF Few UA BACTERIA (test code = BACU) per HPF NONE Urine Source? Clean CatchDRUGS OF ABUSE SCREEN [id number] 00:43:00* Test Item Value Reference Range Interpretation Comments URN COCAINE (test code = COCAURN) NEGATIVE URN CANNABINOIDS (test code = CANNABURN) NEGATIVE URN AMPHETAMINE (test code = AMPHETURN) NEGATIVE URN BARBITURATE (test code = BARBITURN) NEGATIVE URN BENZODIAZEPINE (test code = BENZOURN) NEGATIVE URN OPIATES (test code = OPIATURN) NEGATIVE URN PHENCYCLIDINE (PCP) (test code = PHENCURN) NEGATIV E Urine Source? Clean Catch- XR C-SPINE 4-5 [id number] 16:12:00 Name: NEEMA FOX [facility] : 1980 Age/S:38 /F [address] [facility] Unit#:[id number] Loc: [place], [place] [address] Phys: Arelis Black ONLINE MARKETING SPECIALIST Dis Date: PHONE #: [phone] Status: DEP ER FAX #: [phone] Exam Date: 05/16/2019 Reason: injury EXAMS: CPT CODE: [id number] XR C-SPINE 4-5 V [id number] TECHNIQUE - XR C-SPINE 4-5 V . COMPARISON: None provided. HISTORY: 38 years Female injury FINDINGS: Bones: Multilevel osteophytes. No acute fracture or suspicious focal bone lesion. No bony cervical ribs. Alignment: No spondylolisthesis. Straightening ce rvical spine. Intervertebral discs: Multilevel disc height reducti on. Facet and uncovertebral joints: Multilevel degenerative change s. Neural foramina: Normal. Soft tissues: No abnorma lities. Other: None. IMPRESSION: Mild dege nerative changes. Straightening cervical spine. at 1612 Reported and signed by: Maggie Roman M.D. CC: Karlee Martínez MD; Arelis Black NP; Kenyon Javier MD Technologist: Radha Park Trnscrpt Data: 05/16/2019 (2734) [email or web address] A Orig Print D/T: S: 05/16/2019 (1602) PAGE 1 Signed Report - XR C-SPINE 4-5 [id number] 16:12:00 Name: NEEMA FOX [facility] : 1980 Age/S:38 /F [address] [facility] Unit#:[id number] Loc: [place] [address] Phys: Arelis Black NP Dis Date: PHONE #: [phone] Status: [facility] FAX #: [phone] Exam Date: 05/16/2019 Reason: injury EXAMS: CPT CODE: [id number] XR C-SPINE 4-5 V 55258 TECHNIQUE - XR C-SPINE 4-5 V . COMPARISON: None provided. HISTORY: 38 years Female injury FINDINGS: Bones: Multilevel osteophytes. No acute fracture or suspicious focal bone lesion. No bony cervical ribs. Alignment: No spondylolisthesis. Straightening cervical spine. Intervertebral discs: Multilevel disc height reduction. Facet and uncovertebral joints: Multilevel degenerative changes. Neural foramina: Normal. Soft tissues: No abnormalities. Other: None. IMPRESSION: Mild degenerative changes. Straightening cervical spine. at 1612 Reported and signed by: Maggie Roman M.D. CC: Karlee Martínez MD; Arelis Black NP; Kenyon Javier MD Technologist: Radha Park Trnscrpt Data: 05/16/2019 (4562) BrannonMARCO A Orig Print D/T: S: 05/16/2019 (5092) PAGE 1 Signed Report - XR C-SPINE 4-5 [id number] 16:12:00 Name: NEEMA CUEVAS [facility] : 1980 Age/S:38 /F [address] [facility] Unit#:[id number] Loc: [place] [address] Phys: Arelis Black NP Dis Date: PHONE #: [phone] Status: REG ER FAX #: [phone] Exam Date: 05/16/2019 Reason: injury EXAMS: CPT CODE: [id number] XR C-SPINE 4-5 V 24160 TECHNIQUE - XR C-SPINE 4-5 V . COMPARISON: None provided. HISTORY: 38 years Female injury FINDINGS: Bones: Multilevel osteophytes. No acute fracture or suspicious focal bone lesion. No bony cervical ribs. Alignment: No spondylolisthesis. Straightening cervical spine. Intervertebral discs: Multilevel disc height reduction. Facet and uncovertebral joints: Multilevel degenerative changes. Neural foramina: Normal. Soft tissues: No abnormalities. Other: None. IMPRESSION: Mild degenerative changes. Straightening cervical spine. at 1612 Reported and signed by: Maggie Roman M.D. CC: Karlee Martínez MD; Arelis Black NP; Kenyon Javier MD Technologist: Radha Park Trnscrpt Data: 05/16/2019 (3412) BrannonMARCO A Orig Print D/T: S: 05/16/2019 (0145) PAGE 1 Signed Report URINE HCG TRIAGE (ER ONLY)2019-03-19 06:58:00* Test Item Value Reference Range Interpretation Comments URINE HCG TRIAGE (ER ONLY) (test code = HCGTRIAGE) Negative SPECIMEN COMMENTS: NEGATIVEUrine Test Result: NEGATIVEAre internal con trols (presence of a control line & clear background) OK? YLot # of HCG Test Kit: [id number] Date of Kit: 08/07/20Test Performed by: Dolly HERNÁNDEZ Perfomed on: 03/19/19- XR CHEST 1 [id number] 06:31:00 FAX: Karlee Freeman MD [phone] [place]: St: [facility] FAX: Muriel Kaur NP Name: NEEMA FOX [facility] : 1980 Age/S: 38/F [address] Unit #: [id number] Loc: [place] [address] Phys: Muriel Kaur NP Acct: [id number] Dis Date: Status: DEP ER PHONE #: [phone] Exam Date: 03/19/2019621 FAX #: [phone] Reason: cough, short of breath EXAMS: CPT CODE: [id number] XR CHEST 1 V 54260 EXAM: - XR CHEST 1 V HISTORY: Cough. COMPARISON: January 05, 2019. FINDINGS: Single AP view of the chest is provided. Heart size and vascularity are within norm al limits. The lungs are clear of focal consolidation. No effusion, pneumothorax, or acute osseous abnormality. There is no significant esquivel ge compared to previous exam. IMPRESSION: No radiographi c evidence of acute cardiopulmonary process. at 0631 Reported and s igned by: Wojciech Tamez MD CC: Karlee Martínez MD; Muriel Kaur NP Technologist: Mert Andres RT(R); Jessica Barbosa Trnscrd Date/Time/By: 03/19/2019 (0631) : By: [email or web address] Orig Print D/T: S: 03/19/2019 (0634) PAGE 1 Signed Report - XR CHEST 1 [id number] 06:31:00 FAX: Karlee Freeman MD [phone] [place]: St: REG FAX: Muriel Kaur ONLINE MARKETING SPECIALIST Name: NEEMA FOX [facility] : 1980 Age/S: 38/F [address] [facility] Unit #: [id number] Loc: [place] [address] Phys: Muriel Kaur NP Acct: [id number] Dis Date: Status: REG ER PHONE #: [phone] Exam Date: 03/19/2019621 FAX #: [phone] Reason: cough, short of breath EXAMS: CPT CODE: [id number] XR CHEST 1 V [id number] EXAM: - XR CHEST 1 V HISTORY: Cough. COMPARISON: January 05, 2019. FINDINGS: Single AP view of the chest is provided. Heart size and vascularity are within normal limits. The lungs are clear of focal consolidation. No effusion, pneumothorax, or acute osseous abnormality. There is no significant change compared to previous exam. IMPRESSION: No radiographic evidence of acute cardiopulmonary process. at 0631 Reported and signed by: Wojciech Tamez MD CC: Karlee Martínez MD; Muriel Kaur NP Technologist: Mert Andres RT(R); Jessica Barbosa Trnscrd Date/Time/By: 03/19/2019 (0631) : By: [email or web address] Orig Print D/T: S: 03/19/2019 (0634) PAGE 1 Signed Report - XR CHEST 2 [id number] 21:30:00 Name: NEEMA FOX [facility] : 1980 Age/S:38 /F [address] [facility] Unit#:[id number] Loc: [place] [address] Phys: Inna Siddiqi MD Dis Date: PHONE #: [phone] Status: DEP ER FAX #: [phone] Exam Date: 01/05/2019 Reason: CHEST PAIN EXAMS: CPT CODE: [id number] XR CHEST 2 V [id number] REASON FOR EXAM: CHEST PAIN Exam Order Date: 01/05/2019 8:27 PM Ordering MYane: Inna Siddiqi MD PROCEDURE: - XR CHEST 2 V COMPARISON: AP chest x-ray December 19, 2018 FINDINGS: Right hemidiaphragm is elevated. However the lungs are clear. There is no pleural effusion or pneumothorax. Pulmonary vascularity is within normal limits. Cardiomediastinal silhouette is normal in size for technique. The mediastinal contours are within normal limits. Musculoskeletal structures are within normal limits. The visualized upper abdomen is within normal limits. IMPRESSION: No acute cardiopulmonary process. at 2130 Reported and signed by: Ruddy Broussard MD CC: Inan Siddiqi MD; Karlee Martínez MD Technologist: RAGHU FONSECA RT(R),RDMS,CT Trnsct Data: 01/05/2019 (2129) [email or web address] Orig Print D/T: S: 01/05/2019 (2132) PAGE 1 Signed Report - XR CHEST 2 V 2019-01-05 21:30:00 Name: NEEMA FOX [facility] : 1980 Age/S:38 /F [address] [facility] Unit#:[id number] Loc: [place] [address] Phys: Inna Siddiqi MD Dis Date: PHONE #: [phone] Status: REG ER FAX #: [phone] Exam Date: 01/05/2019 Reason: CHEST PAIN EXAMS: CPT CODE: [id number] XR CHEST 2 V 34919 REASON FOR EXAM: CHEST PAIN Exam Order Date: 01/05/2019 8:27 PM Ordering M.D.: Inna Siddiqi MD PROCEDURE: - XR CHEST 2 V COMPARISON: AP chest x-ray December 19, 2018 FINDINGS: Right hemidiaphragm is elevated. However the lungs are clear. There is no pleural effusion or pneumothorax. Pulmonary vascularity is within normal limits. Cardiomediastinal silhouette is normal in size for technique. The mediastinal contours are within normal limits. Musculoskeletal structures are within normal limits. The visualized upper abdomen is within normal limits. IMPRESSION: No acute cardiopulmonary process. at 2130 Reported and signed by: Ruddy Broussard MD CC: Inna Siddiqi MD; Karlee Martínez MD Technologist: RAGHU FONSECA RT(R),RDMS,CT Trnscrpt Data: 01/05/2019 (2129) [email or web address] Orig Print D/T: S: 01/05/2019 (2132) PAGE 1 Signed Report URINALYSIS [id number] 20:33:00* Test Item Value Reference Range Interpretation Comments UA COLOR (test code = COLU) LIGHT YELLOW YELLOW UA APPEARANCE (test code = APPU) Cloudy CLEAR A UA GLUCOSE DIPSTICK (test code = DGLUU) NORMAL mg/dL NEGATIVE UA BILIRUBIN DIPSTICK (test code = BILU) NEGATIVE mg/dL NEGATIVE UA KETONE DIPSTICK (test code = KETU) neg mg/dL NEGATIVE UA SPECIFIC GRAVITY (test code = SGU) 1.010 1.001-1.035 UA BLOOD DIPSTICK (test code = LISSA) 10 (Trace) Joel/uL NEGATIVE A UA PH DIPSTICK (test code = JUDE) 8.0 5.0-8.0 UA PROTEIN DIPSTICK (test code = PROU) neg mg/dL Neg-15 UA UROBILINIOGEN DIPSTICK (test code = URO) norm mg/dL 0.0-0.2 UA NITRITE DIPSTICK (test code = CLOVIS) NEGATIVE NEGATIVE UA LEUKOCYTE ESTERASE DIPSTICK (test code = LEUU) 500/uL (3+) uL NE GATIVE A UA WBC (test code = WBCU) 30-40 per HPF 0-5 A I N SOME URINARY TRACT INFECTIONS THERE MAY NOT BE ENOUGHWBCs IN THE URINE TO TRIGGER AN AUTOMATIC (REFLEX) URINECULTURE. A SEPERATE ORDER FOR URINE CULTURE IS RECOMMENDEDIF THERE IS STRONG SUPPORT FOR A URINARY TRACT INFECTIONCLINICALLY. UA RBC (test code = RBCU) 0-3 per HPF 0-5 UA EPITHELIAL CELLS (test code = EPIU) Many (>10/hpf) per HPF Few A UA BACTERIA (test code = BACU) MODERATE per HPF NONE A UA MUCUS (test code = MUCU) FEW per LPF NONE-FEW Urine Source? Clean CatchUR HCG [id number] 20:33:00* Test Item Value Reference Range Interpretation Comments UR HCG QUAL (test code = HCGQLU) NEGATIVE This HCGQL test is NOT applicable for MALE patients.Check with nurse about probable order error.If Tumor Marker Test needed, nurse should order test "HCGTU"(Test #550.49954) Urine Source? Clean CatchURINALYSIS [id number] 20:29:00* Test Item Value Reference Range Interpretation Comments UA COLOR (test code = COLU) LIGHT YELLOW YELLOW UA APPEARANCE (test code = APPU) Cloudy CLEAR A UA GLUCOSE DIPSTICK (test code = DGLUU) NORMAL mg/dL NEGATIVE UA BILIRUBIN DIPSTICK (test code = BILU) NEGATIVE mg/dL NEGATIVE UA KETONE DIPSTICK (test code = KETU) neg mg/dL NEGATIVE UA SPECIFIC GRAVITY (test code = SGU) 1.010 1.001-1.035 UA BLOOD DIPSTICK (test code = LISSA) 10 (Trace) Joel/uL NEGATIVE A UA PH DIPSTICK (test code = JUDE) 8.0 5.0-8.0 UA PROTEIN DIPSTICK (test code = PROU) neg mg/dL Neg-15 UA UROBILINIOGEN DIPSTICK (test code = URO) norm mg/dL 0.0-0.2 UA NITRITE DIPSTICK (test code = CLOVIS) NEGATIVE NEGATIVE UA LEUKOCYTE ESTERASE DIPSTICK (test code = LEUU) 500/uL (3+) uL NE GATIVE A UA WBC (test code = WBCU) per HPF 0-5 Urine Source? Clean CatchUR HCG [id number] 20:29:00* Test Item Value Reference Range Interpretation Comments UR HCG QUAL (test code = HCGQLU) Urine Source? Clean CatchBASIC METABOLIC [id number] 20:16:00* Test Item Value Reference Range Interpretation Comments SODIUM (test code = NA) 141 mmol/L 135-148 N POTASSIUM (test code = K) 3.8 mmol/L 3.5-5.1 N CHLORIDE (test code = CL) 104 mmol/L 101-109 N CARBON DIOXIDE (test code = CO2) 26.7 mmol/L 21-32 N ANION GAP (test code = GAP) 14 mmol/L 10-20 N GLUCOSE (test code = GLU) 111 mg/dL 74-106 H BLOOD UREA NITROGEN (test code = BUN) 12 mg/dL 3-21 N GLOMERULAR FILTRATION RATE (test code = GFR) > 60 mL/min >=60 Estimated GFR by using Modified MDRD formula.Chronic kidney disease is defined as either kidney damageor GFR <60 mL/min/1.73 m2 for >3 months. CREATININE (test code = CREAT) 0.78 mg/dL 0.55-1.3 N BUN/CREATININE RATIO (test code = BUN/CREA) 15.4 10-20 N CALCIUM (test code = CA) 9.4 mg/dL 8.4-10.2 N [id number] 20:16:00* Test Item Value Reference Range Interpretation Comments TROPONIN-I (test code = TROPI) 0.02 ng/mL 0.00-0.056 N BASIC METABOLIC [id number] 20:12:00* Test Item Value Reference Range Interpretation Comments SODIUM (test code = NA) 141 mmol/L 135-148 N POTASSIUM (test code = K) 3.8 mmol/L 3.5-5.1 N CHLORIDE (test code = CL) 104 mmol/L 101-109 N CARBON DIOXIDE (test code = CO2) 26.7 mmol/L 21-32 N ANION GAP (test code = GAP) 14 mmol/L 10-20 N GLUCOSE (test code = GLU) 111 mg/dL 74-106 H BLOOD UREA NITROGEN (test code = BUN) 12 mg/dL 3-21 N GLOMERULAR FILTRATION RATE (test code = GFR) > 60 mL/min >=60 Estimated GFR by using Modified MDRD formula.Chronic kidney disease is defined as either kidney damageor GFR <60 mL/min/1.73 m2 for >3 months. CREATININE (test code = CREAT) 0.78 mg/dL 0.55-1.3 N BUN/CREATININE RATIO (test code = BUN/CREA) 15.4 10-20 N CALCIUM (test code = CA) 9.4 mg/dL 8.4-10.2 N [id number] 20:12:00* Test Item Value Reference Range Interpretation Comments TROPONIN-I (test code = TROPI) ng/mL 0-0.045 CBC W/AUTO [id number] 19:59:00* Test Item Value Reference Range Interpretation Comments WHITE BLOOD CELL (test code = WBC) 15.7 K/mm3 4.5-12.5 H RED BLOOD CELL (test code = RBC) 4.63 mill/mm3 3.7-5.2 N HEMOGLOBIN (test code = HGB) 13.4 gram/dL 11.5-15.5 N HEMATOCRIT (test code = HCT) 40.5 % 36.0-46.0 N MEAN CELL VOLUME (test code = MCV) 87.5 fL 80-98 N MEAN CELL HGB (test code = MCH) 28.9 picogram 27.0-33.0 N MEAN CELL HGB CONCETRATION (test code = MCHC) 33.1 gram/dL 33.0-36. 0 N RED CELL DISTRIBUTION WIDTH (test code = RDW) 13.8 % 11.6-16. 2 N RED CELL DISTRIBUTION WIDTH SD (test code = RDW-SD) 43.8 fL 39 .1-52.0 N PLATELET COUNT (test code = PLT) 256 K/mm3 150-450 N MEAN PLATELET VOLUME (test code = MPV) 10.6 fL 6.7-11.0 N NEUTROPHIL % (test code = NT%) 68.3 % 39.0-69.0 N LYMPHOCYTE % (test code = LY%) 25.2 % 25.0-55.0 N MONOCYTE % (test code = MO%) 5.0 % 0.0-10.0 N EOSINOPHIL % (test code = EO%) 1.2 % 0.0-5.0 N BASOPHIL % (test code = BA%) 0.3 % 0.0-1.0 N NEUTROPHIL # (test code = NT#) 10.73 K/mm3 1.8-7.7 H LYMPHOCYTE # (test code = LY#) 3.96 K/mm3 1.0-5.0 N MONOCYTE # (test code = MO#) 0.78 K/mm3 0-0.8 N EOSINOPHIL # (test code = EO#) 0.19 K/mm3 0.0-0.5 N BASOPHIL # (test code = BA#) 0.04 K/mm3 0.0-0.2 N MANUAL DIFF REQUIRED (test code = MDIFF) NO BASIC METABOLIC [id number] 19:31:00* Test Item Value Reference Range Interpretation Comments SODIUM (test code = NA) 141 mmol/L 135-148 N POTASSIUM (test code = K) 3.6 mmol/L 3.5-5.1 N CHLORIDE (test code = CL) 106 mmol/L 101-109 N CARBON DIOXIDE (test code = CO2) 25.6 mmol/L 21-32 N ANION GAP (test code = GAP) 13 mmol/L 10-20 N GLUCOSE (test code = GLU) 91 mg/dL 74-106 N BLOOD UREA NITROGEN (test code = BUN) 9 mg/dL 3-21 N GLOMERULAR FILTRATION RATE (test code = GFR) > 60 mL/min >=60 Estimated GFR by using Modified MDRD formula.Chronic kidney disease is defined as either kidney damageor GFR <60 mL/min/1.73 m2 for >3 months. CREATININE (test code = CREAT) 0.63 mg/dL 0.55-1.3 N BUN/CREATININE RATIO (test code = BUN/CREA) 14.3 10-20 N CALCIUM (test code = CA) 8.6 mg/dL 8.4-10.2 N CBC W/AUTO [id number] 19:23:00* Test Item Value Reference Range Interpretation Comments WHITE BLOOD CELL (test code = WBC) 9.2 K/mm3 4.5-12.5 N RED BLOOD CELL (test code = RBC) 4.42 mill/mm3 3.7-5.2 N HEMOGLOBIN (test code = HGB) 12.8 gram/dL 11.5-15.5 N HEMATOCRIT (test code = HCT) 38.1 % 36.0-46.0 N MEAN CELL VOLUME (test code = MCV) 86.2 fL 80-98 N MEAN CELL HGB (test code = MCH) 29.0 picogram 27.0-33.0 N MEAN CELL HGB CONCETRATION (test code = MCHC) 33.6 gram/dL 33.0-36. 0 N RED CELL DISTRIBUTION WIDTH (test code = RDW) 14.4 % 11.6-16. 2 N RED CELL DISTRIBUTION WIDTH SD (test code = RDW-SD) 43.8 fL 39 .1-52.0 N PLATELET COUNT (test code = PLT) 244 K/mm3 150-450 N MEAN PLATELET VOLUME (test code = MPV) 10.4 fL 6.7-11.0 N NEUTROPHIL % (test code = NT%) 76.2 % 39.0-69.0 H LYMPHOCYTE % (test code = LY%) 17.8 % 25.0-55.0 L MONOCYTE % (test code = MO%) 4.7 % 0.0-10.0 N EOSINOPHIL % (test code = EO%) 1.1 % 0.0-5.0 N BASOPHIL % (test code = BA%) 0.2 % 0.0-1.0 N NEUTROPHIL # (test code = NT#) 6.98 K/mm3 1.8-7.7 N LYMPHOCYTE # (test code = LY#) 1.63 K/mm3 1.0-5.0 N MONOCYTE # (test code = MO#) 0.43 K/mm3 0-0.8 N EOSINOPHIL # (test code = EO#) 0.10 K/mm3 0.0-0.5 N BASOPHIL # (test code = BA#) 0.02 K/mm3 0.0-0.2 N MANUAL DIFF REQUIRED (test code = MDIFF) NO - XR CHEST 1 [id number] 12:26:00 FAX: Karlee Freeman MD [phone] [place]: St: DEP FAX: Cynthia Rodriguez MD Name: NEEMA FOX [facility] : 1980 Age/S: 38/F [address] [facility] Unit #: [id number] Loc: [facility] [place] [place] [address] Phys: Cynthia Rodriguez MD Acct: [id number] Dis Date: Status: DEP ER PHONE #: [phone] Exam Date: 12/19/2018 1209 FAX #: [phone] Reason: CHEST PAIN EXAMS: CPT CODE: [id number] XR CHEST 1 V 33565 HISTORY: Chest pain. COMPARISON: January 25, 2018. No acute infiltrates, effusion or congestion is noted. The cardiac and mediastinal silhouette are within normal limits. IMPRESSION: No acute infiltrates, effusion or congestion. at 6150 Reported and signed by: Agustin Ramirez M.D. CC: Karlee Martínez MD; Cynthia Rodriguez MD Technologist: TRES HERBERT (R) Trnscrd Date/Time/By: 12/19/2018 (5120) : By: [email or web address] Orig Print D/T: S: 12/19/2018 (9843) PAGE 1 Signed Report - XR CHEST 1 [id number] 12:26:00 FAX: Karlee Freeman MD [phone] [place]: St: REG FAX: CYNTHIA RODRIGUEZ MD Name: NEEMA FOX [facility] : 1980 Age/S: 38/F [address] Unit #: [id number] Loc: [place] [address] Phys: CYNTHIA RODRIGUEZ MD Acct: [id number] Dis Date: Status: REG ER PHONE #: [phone] Exam Date: 12/19/2018 1209 FAX #: [phone] Reason: CHEST PAIN EXAMS: CPT CODE: [id number] XR CHEST 1 V 94846 HISTORY: Chest pain. COMPARISON: January 25, 2018. No acute infiltrates, effusion or congestion is noted. The cardiac and mediastinal silhouette are within normal limits. IMPRESSION: No acute infiltrates, effusion or congestion. at 1226 Reported and signed by: Agustin Ramirez M.D. CC: Karlee Martínez MD; CYNTHIA RODRIGUEZ MD Technologist: TRES HAQUE RT (R) Trnscrd Date/Time/By: 12/19/2018 (1226) : By: [email or web address] Orig Print D/T: S: 12/19/2018 (3831) PAGE 1 Signed Report BASIC METABOLIC [id number] 12:21:00* Test Item Value Reference Range Interpretation Comments SODIUM (test code = NA) 143 mmol/L 136-145 N POTASSIUM (test code = K) 3.7 mmol/L 3.5-5.1 N CHLORIDE (test code = CL) 111.0 mmol/L 98-107 H CARBON DIOXIDE (test code = CO2) 23.0 mmol/L 21-32 N ANION GAP (test code = GAP) 12.7 10-20 N GLUCOSE (test code = GLU) 75 mg/dL 74-106 N BLOOD UREA NITROGEN (test code = BUN) 15 mg/dL 7-18 N GLOMERULAR FILTRATION RATE (test code = GFR) > 60 mL/min >=60 Estimated GFR by using Modified MDRD formula.Chronic kidney disease is defined as either kidney damageor GFR <60 mL/min/1.73 m2 for >3 months. CREATININE (test code = CREAT) 0.90 mg/dL 0.55-1.02 N Note change in reference range due to change in reagent. BUN/CREATININE RATIO (test code = BUN/CREA) 16.9 10-20 N CALCIUM (test code = CA) 8.6 mg/dL 8.5-10.1 N HCG SERUM [id number] 12:21:00* Test Item Value Reference Range Interpretation Comments HCG SERUM QUAL (test code = HCGQL) NEGATIVE NEGATIVE This HCGQL test is NOT applicable for MALE patients.Check with nurse about probable order error.If Tumor Marker Test needed, nurse should order test "HCGTU"(Test #550.04035) [id number] 12:21:00* Test Item Value Reference Range Interpretation Comments TROPONIN-I (test code = TROPI) <0.015 ng/mL 0-0.045 N CBC W/O [id number] 12:16:00* Test Item Value Reference Range Interpretation Comments WHITE BLOOD CELL (test code = WBC) 7.8 K/mm3 4.5-12.5 N RED BLOOD CELL (test code = RBC) 4.28 mill/mm3 3.7-5.2 N HEMOGLOBIN (test code = HGB) 12.1 gram/dL 11.5-15.5 N HEMATOCRIT (test code = HCT) 37.4 % 36.0-46.0 N MEAN CELL VOLUME (test code = MCV) 87.4 fL 80-98 N MEAN CELL HGB (test code = MCH) 28.3 picogram 27.0-33.0 N MEAN CELL HGB CONCETRATION (test code = MCHC) 32.4 gram/dL 33.0-36. 0 L RED CELL DISTRIBUTION WIDTH (test code = RDW) 13.9 % 11.6-16. 2 N PLATELET COUNT (test code = PLT) 218 K/mm3 150-450 N MEAN PLATELET VOLUME (test code = MPV) 10.6 fL 6.7-11.0 N BASIC METABOLIC [id number] 12:12:00* Test Item Value Reference Range Interpretation Comments SODIUM (test code = NA) 143 mmol/L 136-145 N POTASSIUM (test code = K) 3.7 mmol/L 3.5-5.1 N CHLORIDE (test code = CL) 111.0 mmol/L 98-107 H CARBON DIOXIDE (test code = CO2) mmol/L 21-32 ANION GAP (test code = GAP) 10-20 GLUCOSE (test code = GLU) mg/dL 74-106 BLOOD UREA NITROGEN (test code = BUN) mg/dL 7-18 GLOMERULAR FILTRATION RATE (test code = GFR) mL/min >=60 CREATININE (test code = CREAT) mg/dL 0.55-1.02 BUN/CREATININE RATIO (test code = BUN/CREA) 10-20 CALCIUM (test code = CA) 8.6 mg/dL 8.5-10.1 N HCG SERUM [id number] 12:12:00* Test Item Value Reference Range Interpretation Comments HCG SERUM QUAL (test code = HCGQL) NEGATIVE NEGATIVE This HCGQL test is NOT applicable for MALE patients.Check with nurse about probable order error.If Tumor Marker Test needed, nurse should order test "HCGTU"(Test #550.78003) [id number] 12:12:00* Test Item Value Reference Range Interpretation Comments TROPONIN-I (test code = TROPI) ng/mL 0-0.045 BASIC METABOLIC [id number] 12:10:00* Test Item Value Reference Range Interpretation Comments SODIUM (test code = NA) 143 mmol/L 136-145 N POTASSIUM (test code = K) 3.7 mmol/L 3.5-5.1 N CHLORIDE (test code = CL) 111.0 mmol/L 98-107 H CARBON DIOXIDE (test code = CO2) mmol/L 21-32 ANION GAP (test code = GAP) 10-20 GLUCOSE (test code = GLU) mg/dL 74-106 BLOOD UREA NITROGEN (test code = BUN) mg/dL 7-18 GLOMERULAR FILTRATION RATE (test code = GFR) mL/min >=60 CREATININE (test code = CREAT) mg/dL 0.55-1.02 BUN/CREATININE RATIO (test code = BUN/CREA) 10-20 CALCIUM (test code = CA) 8.6 mg/dL 8.5-10.1 N HCG SERUM [id number] 12:10:00* Test Item Value Reference Range Interpretation Comments HCG SERUM QUAL (test code = HCGQL) NEGATIVE [id number] 12:10:00* Test Item Value Reference Range Interpretation Comments TROPONIN-I (test code = TROPI) ng/mL 0-0.045 - CT ORBIT/SELLA/IAC W [id number] 18:56:00 Name: NEEMA FOX [facility] : 1980 Age/S: 38 / F [address] [facility] Unit #: [id number] Loc: [place] [address] Phys: Tammy Galicia MD Acct: [id number] Dis Date: Status: DEP ER PHONE #: [phone] Exam Date: 12/12/2018 1843 FAX #: [phone] Reason: pain, trauma EXAMS: CPT CODE: [id number] CT ORBIT/SELLA/[place] [address] REASON FOR EXAM: pain, trauma EXAM ORDER DATE: 12/12/2018 5:24 PM Ordering M.DNessa: Tammy Galicia MD PROCEDURE: - CT ORBIT/SELLA/IAC W WO FINDINGS: CT images of the face were obtained 1st without and following with IV contrast at 2.5 mm thickness. Dose reduction techniques were applied The globes are intact. The orbital moore are unremarkable without evidence of orbital blowout fracture. The nasal bone is unremarkable. The mandibles are within normal limits. No evidence of facial fracture The visualized paranasal sinuses are well aerated. No abnormal enhancement seen on the postcontrast exam IMPRESSION: diffuse soft tissue swelling in the right periorbital region. No evidence of facial fracture at 8826 Reported and signed by: Stas Cole M.D. CC: Karlee Martínez MD; Tammy Galicia MD Technolog ist:COREY BRADSHAW, RT(R) CT CTDI: DLP: Trnscb Date/Time: 0 12/12/2018 (1855) [email or web address] Orig Print D/T: S: 12/12/2018 (1858) PAGE 1 Signed Report - CT ORBIT/SELLA/IAC W [id number] 18:56:00 Name: NEEMA CUEVAS [facility] : 1980 Age/S: 38 / F [address] [facility] #: [id number] Loc: [place] [address] Phys: Tammy Galicia MD Acct: [id number] Dis Date: Status: REG ER PHONE #: [phone] Exam Date: 12/12/2018 1843 FAX #: [phone] Reason: pain, trauma EXAMS: CPT CODE: [id number] CT ORBIT/SELLA/[place] [address] REASON FOR EXAM: pain, trauma EXAM ORDER DATE: 12/12/2018 5:24 PM Ordering MYane: Tammy Galicia MD PROCEDURE: - CT ORBIT/SELLA/IAC W WO FINDINGS: CT images of the face were obtained 1st without and following with IV contrast at 2.5 mm thickness. Dose reduction techniques were applied The globes are intact. The orbital moore are unremarkable without evidence of orbital blowout fracture. The nasal bone is unremarkable. The mandibles are within normal limits. No evidence of facial fracture The visualized paranasal sinuses are well aerated. No abnormal enhancement seen on the postcontrast exam IMPRESSION: diffuse soft tissue swelling in the right periorbital region. No evidence of facial fracture at 1856 Reported and signed by: Stas Cole M.D. CC: Karlee Martínez MD; Tammy Galicia MD Technolog ist:COREY BRADSHAW, RT(R) CT CTDI: DLP: Trnscb Date/Time: 0 12/12/2018 (1855) [email or web address] Orig Print D/T: S: 12/12/2018 (1858) CTDI: DLP: PAGE 1 Signed R eport - XR CHEST 1 [id number] 02:32:00 Name: NEEMA FOX [facility] : 1980 Age/S:38 /F [address] [facility] Unit#:[id number] Loc: [place] [address] Phys: Johann Scott MD Dis Date: PHONE #: [phone] Status: DEP ER FAX #: [phone] Exam Date: 10/08/2018 Re ason: SVT EXAMS: CPT CODE: [id number] XR CHEST 1 V 76747 EXAM: - XR CHEST 1 V HISTORY: Chest pain. FINDINGS: Single AP view of the chest is provided. Heart size and vascularity are within normal limits. The lungs are clear of focal consolidation. No effusion, pneumothor ax, or acute osseous abnormality. IMPRESSION: No radiographic evidence of acute cardiopulmonary process. Electronica lly Signed by Wojciech Tamez MD on 10/08/2018 at 0232 Re ported and signed by: Wojciech Tamez MD CC: Johann Scott MD Technologist: RAGHU FONSECA RT(R),R DMS,CT Trnscrpt Data: 10/08/2018 (0232) [email or web address] Orig Print D/T: S: 10/08/2018 (0235) PAGE 1 Signed Report - XR CHEST 1 [id number] 02:32:00 Name: NEEMA FOX [facility] : 1980 Age/S:38 /F [address] [facility] Unit#:[id number] Loc: [place] [address] Phys: Johann Scott MD Dis Date: PHONE #: [phone] Status: DEP ER FAX #: [phone] Exam Date: 10/08/2018 Reason: SVT EXAMS: CPT CODE: [id number] XR CHEST 1 V 32136 EXAM: - XR CHEST 1 V HISTORY: Chest pain. FINDINGS: Single AP view of the chest is provided. Heart size and vascularity are within normal limits. The lungs are clear of focal consolidation. No effusion, pneumothorax, or acute osseous abnormality. IMPRESSION: No radiographic evidence of acute cardiopulmonary process. at 0232 Reported and signed by: Wojciech Tamez MD CC: Johann Scott MD Technologist: RAGHU FONSECA RT(R),RDMS,CT Trnscrpt Data: 10/08/2018 (023) [email or web address] Orig Print D/T: S: 10/08/2018 (023) PAGE 1 Signed Report - XR CHEST 2 [id number] 23:45:00 Name: MASONNEEMA NICHOLS [facility] : 1980 Age/S:37 /F [address] [facility] Unit#:[id number] Loc: [place] [address] Phys: Inna Siddiqi MD Dis Date: PHONE #: [phone] Status: [facility] FAX #: [phone] Exam Date: 01/15/2018 Reason: CHEST TIGHTNESS EXAMS: CPT CODE: [id number] XR CHEST 2 V [id number] - XR CHEST 2 V Location: After hours services provided01/15/2018 11:45 PM INDICATION:CHEST TIGHTNESS COMPARISON:03/18/2016 FINDINGS:The lungs are equally and symmetrically inflated. Unchanged calcified granuloma within the right midlung zone. The trachea is midline. The heart is normal in size. No acute bony abnormality. IMPRESSION: No acute cardiopulmonary disease. at 4250 Reported and signed by: Boris Ibrahim M.D. CC: Inna Siddiqi MD Technologist: RAGHU FONSECA RT(R),RDMS,CT Trnscrpt Data: 01/15/2018 (5347) [id number] Orig Print D/T: S: 01/15/2018 (6807) PAGE 1 Signed Report - US ABDOMEN COMPLETE 2017-07-21 17:44:00 Name: NEEMA FOX [facility] : 1980 Age/S: 37 / F [address] [facility] Unit #: [id number] Loc: [place] [address] Phys: Trena Farooq NP Acct: [id number] Dis Date: Status: UNK PHONE #: [phone] Exam Date: 07/21/2017 1710 FAX #: [phone] Reason: RUQ PAIN EXAMS: CPT CODE: [id number] US ABDOMEN COMPLETE [id number] HISTORY: Right upper quadrant abdominal pain TECHNIQUE: Static grayscale and Doppler images from real time sonographic evaluation of the abdomen. Spectral waveform analysis of the portal vein. COMPARISON: 03/18/16 FINDINGS: LIVER: Hepatomegaly, measuring 18.1 cm craniocaudal. Normal echogenicity without focal lesion. No intrahepatic biliary dilation. Hepatopedal flow identified within the portal vein. GALLBLADDER: No cholelithiasis. No gallbladder wall thickening or pericholecystic fluid. Technologist reports negative sonographic Erickson's sign. COMMON DUCT: Normal caliber at 2 mm. PANCREAS: Mostly obscured. No visible pancreatic abnormality. KIDNEYS: Normal parenchymal echogenicity. Right kidney measures 10.5 x 4.8 x 5.8 cm. Left kidney measures 11.4 x 6.0 x 4.8 cm. No hydronephrosis. SPLEEN: Normal parenchymal echogenicity. AORTA/IVC: No abdominal aortic aneurysm. Patent IVC. OTHER: There is no free fluid. IMPRESSION: No acute findings on sonographic evaluation of the abdomen. at 5284 Reported and signed by: Felisa Ivey D.O. CC: Trena Farooq NP; Karlee Martínez MD Technologist: CONNIE CHUA RDMS Trnscb Date/Time: 07/21/2017 (3231) [email or web address] Orig Print D/T: S: 07/21/2017 (6403) Probe: PAGE 1 Signed Report - DUP AB/PEL/SC [id number] 17:44:00 Name: NEEMA FOX [facility] : 1980 Age/S: 37 / F [address] Unit #: [id number] Loc: [place] [address] Phys: Trena Farooq NP Acct: [id number] Dis Date: Status: UNK PHONE #: [phone] Exam Date: 07/21/2017 1710 FAX #: [phone] Reason: RUQ PAIN EXAMS: CPT CODE: [id number] DUP AB/PEL/SC COMP 80043 HISTORY: Right upper quadrant abdominal pain TECHNIQUE: Static grayscale and Doppler images from real time sonographic evaluation of the abdomen. Spectral waveform analysis of the portal vein. COMPARISON: 03/18/16 FINDINGS: LIVER: Hepatomegaly, measuring 18.1 cm craniocaudal. Normal echogenicity without focal lesion. No intrahepatic biliary dilation. Hepatopedal flow identified within the portal vein. GALLBLADDER: No cholelithiasis. No gallbladder wall thickening or pericholecystic fluid. Technologist reports negative sonographic Erickson's sign. COMMON DUCT: Normal caliber at 2 mm. PANCREAS: Mostly obscured. No visible pancreatic abnormality. KIDNEYS: Normal parenchymal echogenicity. Right kidney measures 10.5 x 4.8 x 5.8 cm. Left kidney measures 11.4 x 6.0 x 4.8 cm. No hydronephrosis. SPLEEN: Normal parenchymal echogenicity. AORTA/IVC: No abdominal aortic aneurysm. Patent IVC. OTHER: There is no free fluid. IMPRESSION: No acute findings on sonographic evaluation of the abdomen. at 0872 Reported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
--- OUTSIDE RECORDS SUMMARY | 2020-09-21 02:36 | XMS REPORT | Clinical Summary ---
Author Author [facility] Address Unknown Phone Unavailable Care Team Providers Care Hand Former Name Role Phone Pcp, No PCP Unavailable Allergies No Known Allergies Medications End Date Status Medication Sig Dispensed Refills Start Date Active ALPRAZolam (XANAX) 0.25 Take 0.25 mg 0 MG tablet by mouth every night as needed for Anxiety. Active albuterol (PROVENTIL) 2.5 Take 2.5 mg 0 mg /3 mL (0.083 %) by nebulizer solution nebulization every 6 (six) hours as needed for Wheezing. Active Problems Not on file Encounters Care Team Description Date Type Specialty Jasmeet Funk MD 11/14/2019 Emergency Emergency Medicine 11/14/2019 Travel after 09/21/2019 Social History Date Tobacco Use Types Packs/Day Years Used Never Smoker Smokeless Tobacco: Never Used Drinks/Week oz/Week Comments Alcohol Use No Alcohol Habits Answer Date Recorded How often do you have a drink containing alcohol? Never 11/14/2019 How many drinks containing alcohol do you have on No t asked a typical day when you are drinking? How often do you have six or more drinks on one Not asked occasion? Sex Assigned at Date Recorded Not on file Last Filed Vital Signs Reading Time Taken Comments Vital Sign 107/75 11/14/2019 2:59 AM [employer] Blood Pressure 79 11/14/2019 2:59 AM [employer] Pulse 37.1 C (98.7 F) 11/14/2019 2:59 AM [employer] Temperature 20 11/14/2019 2:59 AM [employer] Respiratory Rate 100% 11/14/2019 2:59 AM [employer] Oxygen Saturation - - Inhaled Oxygen Concentration 81.6 kg (180 lb) 11/14/2019 2:59 AM [employer] Weight 157.5 cm (5' 2") 11/14/2019 2:59 AM [employer] Height 32.92 11/14/2019 2:59 AM [employer] Body Mass Index Plan of Treatment Health Maintenance Due Date Last Done Comments LIPID PANEL 2001 CERVICAL CANCER SCREENING 2002 PAP ONLY (Age 21-65) INFLUENZA VACCINE (#1) 2020 Procedures Comments Procedure Name Priority Date/Time Associated Diag nosis REPORT OF PROCEDURE - 11/24/2019 ENDOSCOPY SCAN 1:10 PM [employer] SCREEN, URINE STAT 11/14/2019 2:36 AM [employer] CBC W/PLT COUNT & AUTO STAT 11/14/2019 DIFFERENTIAL 2:31 AM [employer] TROPONIN I STAT 11/14/2019 2:31 AM [employer] CBC W/PLT COUNT & AUTO STAT 11/14/2019 DIFFERENTIAL 2:31 AM [employer] B-TYPE NATRIURETIC FACTOR STAT 11/14/2019 (BNP) 2:31 AM [employer] BASIC METABOLIC PANEL (7) STAT 11/14/2019 2:31 AM [employer] ECG 12-LEAD STAT 11/14/2019 2:10 AM [employer] after 09/21/2019 Results * EKG-SCANNED (11/24/2019 1:10 PM [employer]) Narrative Performed At This result has an attachment that is n ot available. * Screen, urine (11/14/2019 2:36 AM [employer]) Preg Test, Ur Negative [facility] Specimen Urine Performing Organization Address City/State/Zipcode Ph one Number [address] [facility] * CBC with platelet count + automated diff (11/14/2019 2:31 AM [employer]) WBC 10.7 (H) 3.5 - 10.5 K/L [facility] RBC 4.33 3.93 - 5.22 M/L [facility] Hemoglobin 12.6 11.2 - 15.7 GM/DL [facility] Hematocrit 39.2 34.1 - 44.9 % [facility] MCV 90.5 79.4 - 94.8 fL [facility] MCH 29.1 25.6 - 32.2 pg [facility] MCHC 32.1 (L) 32.2 - 35.5 GM/DL [facility] RDW 13.3 11.7 - 14.4 % [facility] Platelets 246 150 - 450 K/CU MM [facility] MPV 10.5 9.4 - 12.3 fL [facility] nRBC 0 0 - 0 /100 WBC [facility] % Neutros 55 % [facility] % Lymphs 37 % [facility] % Monos 6 % [facility] % Eos 2 % [facility] % Baso 0 % [facility] # Neutros 5.85 1.56 - 6.13 K/L [facility] # Lymphs 3.98 (H) 1.18 - 3.74 K/L [facility] # Monos 0.63 (H) 0.24 - 0.36 K/L [facility] # Eos 0.16 0.04 - 0.36 K/L [facility] # Baso 0.04 0.01 - 0.08 K/L [facility] Immature 0 0 - 1 % [facility] Specimen Blood Performing Organization Address City/State/Zipcode Ph one Number [phone] [address] [facility] [place] [facility] [facility] * Troponin I (11/14/2019 2:31 AM [employer]) Troponin I <0.01 0.00 - 0.03 ng/mL [facility] Specimen Blood Narrative Performed At Troponin I (TnI) levels must be interpreted in the co ntext of the presenting [facility] symptoms and the clinical findings. Elevated TnI leve ls indicate myocardial [facility] damage, but are not specific for ischem ic heart disease. Elevated TnI levels are seen in patients with other cardiac con ditions (including myocarditis and congestive heart failure), and slight T nI elevations occur in patients with other conditions, including sepsis, adan al failure, acidosis, acute neurological disease, and persistent tachyarrhythmia . Performing Organization Address City/[facility] one Number [place] [phone] [place] [address] * B-type Natriuretic Factor (BNP) (11/14/2019 2:31 AM [employer]) BNP <10 0 - 100 pg/mL [facility] Specimen Blood Performing Organization Address City/[facility] Ph one Number [place] [address] [facility] * Basic Metabolic Panel (11/14/2019 2:31 AM [employer]) Sodium 139 136 - 145 meq/L [facility] Potassium 3.5 3.5 - 5.1 meq/L [facility] Chloride 107 98 - 107 meq/L [facility] CO2 22 22 - 29 meq/L [facility] BUN 13 7 - 21 mg/dL [facility] Creatinine 0.75 0.57 - 1.25 mg/dL [facility] Glucose 91 70 - 105 mg/dL [facility] Calcium 9.8 8.4 - 10.2 mg/dL [facility] EGFR 86Comment: INSUFFICIENT mL/min/1.73 sq m [facility] CLINICAL DATA TO CALCULATE HEALTH BCM ESTIMATED GFR. [facility] Specimen Blood Performing Organization Address City/State/Zipcode Ph one Number [facility] [address] [place] [address] [facility] * ECG 12 lead (11/14/2019 2:10 AM [employer]) Specimen Narrative Performed At Ventricular Rate 97 BPM GE MUSE Atrial Rate 97 BPM P-R Interval 136 ms QRS Duration 82 ms Q-T Interval 358 ms QTC Calculation(Bazett) 454 ms P [place] 45 degrees R [place] 46 degrees T [place] 23 degrees Normal sinus rhythm Normal ECG No previous ECGs available Confirmed by MD CENTENO YOCHAI ([id number] ) on 11/14/2019 6:50:57 AM Procedure Note Interface, External Ris In - 11/14/2019 6:51 AM [employer] Ventricular Rate 97 BPM Atrial Rate 97 BPM P-R Interval 136 ms QRS Duration 82 ms Q-T Interval 358 ms QTC Calculation(Bazett) 454 ms P [place] 45 degrees R [place] 46 degrees T [place] 23 degrees Normal sinus rhythm Normal ECG No previous ECGs available Confirmed by MD CENTENO YOCHAI ([id number]) on 11/14/2019 6:50:57 AM Performing Organization Address City/State/Zipcode Ph one Number GE M[facility] after 09/21/2019
--- NOTE | 2020-09-21 02:44 | NUR ---
second ekg given to md for review
[2020-09-21 02:54] VITALS: BP 116/78
== END 2020-09-21 02:55 | disposition home or self-care (01) ==
LOC: ER 01:05
DX: R07.9 Chest pain, unspecified (principal)
CPT/HCPCS: 36415; 71045; 80053; 82550; 82553; 83880; 84484; 85025; 85379; 93005; 99284